=== PATIENT | female | born 1965 | race Caucasian/White ===

== ENCOUNTER 2019-07-22 10:43 | Emergency (ER) | payer BC, SELFPAY ==
[2019-07-22 10:55] VITALS: BP 110/62; PULSE 87; RESP 20; TEMP 38.2; O2SAT 100
--- NOTE | 2019-07-22 11:42 | ED.URI ---
HPI - URI/Sore Throat General Chief Complaint: Upper Respiratory Infection Stated Complaint: nausea/cough/aches Time Seen by Provider: 07/22/19 11:42 Source: patient, family and RN notes reviewed Mode of arrival: ambulatory Limitations: no limitations History of Present Illness HPI Narrative: 54-year-old female who presents to [facility] care with 1 day duration of sore throat fever, body aches, ear pain,with cough and some nausea. Patient states that she had been running fevers around 101F and feels awful.Patient states that her cough is dry, denies any feelings of dyspnea or any wheezing. Patient states that she did not take a flu shot this year. Patient states that she has been taking Ibuprofen and Tesslon perles for her symptoms. Patient has history of MVP and has cardiac loop recorder. MD elicited complaint: fever, sore throat, rhinorrhea, nasal congestion and other (bodyaches, ear pain) Onset (ago): day(s) (1) Consistency: progressively worsening Severity: severe Pain scale (0-10): 8 Description of mucous: clear and yellow Able to tolerate fluids by mouth: Yes Exacerbating factors: swallowing, exertion and deep breaths Relieving factors: nothing Associated symptoms: fever, chills, myalgias, rhinorrhea, nasal congestion and cough Treatments prior to arrival: ibuprofen and other (cough tabs) Related Data Home Medications Medication Instructions Recorded Confirmed fludrocortisone 0.1 mg DAILY 07/22/19 07/22/19 midodrine 5 mg BID 07/22/19 07/22/19 venlafaxine 150 mg PO DAILY 07/22/19 07/22/19 Allergies Allergy/AdvReac Type Severity Reaction Status Date / Time No Known Allergies Allergy Verified 07/22/19 10:59 Review of Systems Review of Systems: Narrative: CONSTITUTIONAL: positive fever, chills, or sweats. EYES: Denies visual changes, redness, or discharge. ENT: positive rhinorrhea, congestion, sore throat, or otalgia. CARDIOVASCULAR: Denies chest pain, palpitations, or edema. RESPIRATORY positive cough denies dyspnea. GASTROINTESTINAL: Denies abdominal pain,positive nausea, no vomiting, or diarrhea. GENITOURINARY: Denies dysuria or hematuria. SKIN: Denies rash or itching. MUSCULOSKELETAL: Denies back pain, joint pain,positive body aches NEUROLOGIC: Denies headache, numbness, or weakness. PSYCHIATRIC: Denies anxiety or depression. All systems reviewed & are unremarkable except as noted in HPI and below PMFSH Past Medical History Medical History (Updated 07/25/19 @ 15:47 by Laura Hinds NP) Hypotension MVP (mitral valve prolapse) Social History Social History (Updated 07/25/19 @ 15:48 by Laura Hinds NP) Smoking status: Never smoker Living arrangements: with family Gender identity (if verbalized by the patient): Female Comments At time of signature, agree with nursing past medical, social history. There is no relevant family history pertinent to the presenting complaint Exam Narrative: Exam Narrative: GENERAL: Ill-appearing, well-nourished, and in no acute distress. HEAD: Normocephalic, atraumatic. EYES: PERRLA and EOMI. ENT: Naresred withrhinorrhea no epistaxis. Mucous membranes moist.TM's normal with dull light reflex,throat mild redness with no lesions or exudate no enlargement of tonsils NECK: Supple.no lymphadenopathy CHEST: Clear to auscultation. No respiratory distress. SAO2 100% on room air HEART: Regular rate and rhythm. pansystolic 2/6 murmur heard. Normal peripheral pulses. ABDOMEN: Soft, nontender, nondistended, normal active bowel sounds. EXTREMITIES: Normal range of motion. No edema. SKIN: Warm, dry, no rash. NEURO: No focal deficits. Alert and oriented x3. Course Vital Signs Vital signs: Vital Signs Temperature 38.2 C H 07/22/19 10:55 Pulse Rate 87 07/22/19 10:55 Respiratory Rate 20 07/22/19 10:55 Blood Pressure 110/62 07/22/19 10:55 Pulse Oximetry 100 07/22/19 10:55 Temperature 38.2 C H 07/22/19 10:55 Pulse Rate 87 07/22/19 10:55 Respirator
== END 2019-07-22 12:13 | disposition home or self-care (01) ==
PROVIDERS: Emergency Provider Registered Nurse
DX: J10.1 Influenza due to other identified influenza virus with other respiratory manifestations (principal); I34.1 Nonrheumatic mitral (valve) prolapse
CPT/HCPCS: 87081; 87804; 87880; 99213; G0463

== ENCOUNTER 2019-10-27 10:16 | Emergency (ER) | payer BC, SELFPAY ==
--- NOTE | 2019-10-27 10:21 | ED.GENADULT ---
HPI - General Adult General Chief complaint: Ear Stated complaint: ear pain Time Seen by Provider: 10/27/19 10:21 Source: patient Mode of arrival: ambulatory Limitations: no limitations History of Present Illness HPI narrative: 54-year-old female patient presents to the psychiatric with complaints of right ear pain x1 week. Patient states she has been taking ibuprofen and Tylenol for her pain. Denies any discharge coming from the ear. Patient states that she is had some discomfort. Patient denies any decrease in hearing. Patient denies any fevers headaches, fatigue or chills. Patient states she feels that the pain is radiating down into the right side of her throat. Patient states she has had a little bit of runny nose and stuffy nose with some sneezing lately and thinks it might be sinuses but denies taking any antihistamines at this time. Related Data Home Medications Medication Instructions Recorded Confirmed midodrine 5 mg BID 07/22/19 07/22/19 venlafaxine 150 mg PO DAILY 07/22/19 07/22/19 Aspir-81 10/27/19 fludrocortisone mg 10/27/19 Allergies Allergy/AdvReac Type Severity Reaction Status Date / Time No Known Allergies Allergy Verified 07/22/19 10:59 Review of Systems Review of Systems: Narrative: CONSTITUTIONAL: Denies fever, chills, or sweats. EYES: Denies visual changes, redness, or discharge. ENT: Denies rhinorrhea, congestion, sore throat, positive right otalgia. CARDIOVASCULAR: Denies chest pain, palpitations, or edema. RESPIRATORY: Denies cough or dyspnea. GASTROINTESTINAL: Denies abdominal pain, nausea, vomiting, or diarrhea. GENITOURINARY: Denies dysuria or hematuria. SKIN: Denies rash or itching. MUSCULOSKELETAL: Denies back pain, joint pain, or myalgia. NEUROLOGIC: Denies headache, numbness, or weakness. PSYCHIATRIC: Denies anxiety or depression. [facility] Past Medical History Medical History Hypotension MVP (mitral valve prolapse) Social History Social History Smoking status: Never smoker Gender identity (if verbalized by the patient): Female Comments At the time of my signature I agree with nursing past medical history, surgical, social, and family history. There is no relevant family history pertinent to the presenting complaint. Exam Narrative: Exam Narrative: GENERAL: Well-appearing, well-nourished, and in no acute distress. HEAD: Normocephalic, atraumatic. EYES: PERRLA and EOMI. ENT: Nares clear, no rhinorrhea or epistaxis. Mucous membranes moist. Posterior pharynx no erythema, tonsil larger, exudates or lesions present. The right TM does have some fluid behind the ear no obvious redness noted at this time. Canal is clear. NECK: Supple. No lymphadenopathy CHEST: Clear to auscultation. No respiratory distress. HEART: Regular rate and rhythm. No murmur heard. Normal peripheral pulses. ABDOMEN: Soft, nontender, nondistended, normal active bowel sounds. EXTREMITIES: Normal range of motion. No edema. SKIN: Warm, dry, no rash. NEURO: No focal deficits. Alert and oriented x3. Course Vital Signs Vital signs: Vital Signs Temperature 36.3 C L 10/27/19 10:28 Pulse Rate 64 10/27/19 10:28 Respiratory Rate 16 10/27/19 10:28 Blood Pressure 119/71 10/27/19 10:28 Pulse Oximetry 100 10/27/19 10:28 Temperature 36.3 C L 10/27/19 10:28 Pulse Rate 64 10/27/19 10:28 Respiratory Rate 16 10/27/19 10:28 Blood Pressure 119/71 10/27/19 10:28 Pulse Oximetry 100 10/27/19 10:28 Vital signs reviewed. Medical Decision Making Differential Diagnosis Differential Diagnosis: Differential diagnosis: Otitis media, otitis externa, perforated TM, infection of the outer ear, foreign body or cerumen impaction, ruptured TM, acute mastoiditis, ligament otitis externa, dehydration, pneumonia, sepsis, dental or intraoral infection, TMJ dysfunction Discussed with patie
[2019-10-27 10:28] VITALS: BP 119/71; PULSE 64; RESP 16; TEMP 36.3; O2SAT 100
== END 2019-10-27 10:40 | disposition home or self-care (01) ==
PROVIDERS: Emergency Provider Nurse Practitioner Family; PCP Family Medicine
DX: H66.91 Otitis media, unspecified, right ear (principal); I34.1 Nonrheumatic mitral (valve) prolapse
CPT/HCPCS: 99213; G0463

== ENCOUNTER 2019-12-15 15:36 | Outpatient (CLI) | payer BC, SELFPAY ==
--- NOTE | ~2019-12-15 | CT_ITS ---
EXAMINATION: CT abdomen pelvis wo/w con DATE: 12/15/2019 16:36 INDICATION: Microscopic hematuria TECHNIQUE: Computed tomography (CT) of the abdomen and pelvis was performed without and with 130 cc O mnipaque 350 intravenous contrast. The dose-length product was 774.79 mGy-cm. Automated exposure cont rol and iterative reconstruction technique were employed. COMPARISON: None. FINDINGS: There are no renal/ureteral stones or hydronephrosis. Bladder is unremarkable. There are tu bal ligation clips in the pelvis. Uterus is likely surgically absent. Nonobstructive bowel gas pattern. The liver, spleen, adrenal glands and kidneys are unremarkable. The re is a small 6 mm hypodensity of the pancreas. Gallbladder is present. No free air or free fluid. No acute osseous abnormality. There are surgical clips in the pelvis. Small lytic lesions in the left i lium are nonspecific, possibly normal variant. IMPRESSION: 1. No findings to account for hematuria. 2: 6 mm hypodense pancreatic lesion. The differential diagnosis includes pseudocyst, intraductal pap illary mucinous neoplasm (IPMN), mucinous cystic neoplasm (MCN), and the less common serous cystadeno ma and neuroendocrine tumor. Reviewed, dictated and finalized at location A. IMPRESSION: 1. No findings to account for hematuria. 2: 6 mm hypodense pancreatic lesion. The differential diagnosis includes pseud ocyst, intraductal papillary mucinous neoplasm (IPMN), mucinous cystic neoplasm (MCN), and the less common serous cystadenoma and neuroendocrine tumor.
== END 2019-12-15 15:37 | disposition home or self-care (01) ==
DX: R31.1 Benign essential microscopic hematuria (principal)
CPT/HCPCS: 74178; Q9967

== ENCOUNTER 2020-03-01 16:15 | Emergency (ER) | payer BC, SELFPAY ==
--- NOTE | ~2020-03-01 | XR_ITS ---
EXAMINATION: XR chest 2V DATE: 03/01/2020 16:46 INDICATION: Cough and shortness of breath TECHNIQUE: PA and lateral views of the chest are obtained. COMPARISON: None available FINDINGS: The lungs are free of acute opacities. There is no pleural effusion or pneumothorax. The ca rdiomediastinal silhouette is normal. There is mild thoracic spondylosis. A cardiac monitoring device is implanted in the subcutaneous tissues of the anterior left chest wall. IMPRESSION: 1. No acute cardiopulmonary abnormality. Reviewed, dictated and finalized at location A.
[2020-03-01 16:25] VITALS: BP 104/68; PULSE 81; RESP 20; TEMP 36.5; O2SAT 99
--- NOTE | 2020-03-01 16:44 | ED.URI ---
HPI - URI/Sore Throat General Chief Complaint: Upper Respiratory Infection Stated Complaint: upper respiratory infection Source: patient Mode of arrival: ambulatory Limitations: no limitations History of Present Illness HPI Narrative: Patient is a 54-year-old female who presents with multiple complaints. She reports cough, sore throat, chest tightness, mild shortness of breath, lethargy, body aches and headache. Patient reports signs and symptoms x7 to 10 days. She reports COVID testing x3 which have all been negative. Patient reports that she does not feel that she is improving and sent by PCP to urgent care. MD elicited complaint: cough and other Related Data Home Medications Medication Instructions Recorded Confirmed midodrine 5 mg BID 07/22/19 03/01/20 venlafaxine 150 mg PO DAILY 07/22/19 03/01/20 Aspir-81 81 mg PO DAILY 10/27/19 03/01/20 fludrocortisone 0.1 mg PO DAILY 10/27/19 03/01/20 multivitamin 1 tablet PO DAILY 01/30/20 01/31/20 sodium chloride 1 gram tablet 1,000 mg PO DAILY 01/30/20 03/01/20 Allergies Allergy/AdvReac Type Severity Reaction Status Date / Time No Known Allergies Allergy Verified 01/31/20 09:38 Review of Systems Review of Systems: Narrative: CONSTITUTIONAL: Denies fever or sweats. Reports intermittent chills x1 week EYES: Denies visual changes, redness, or discharge. ENT: Denies rhinorrhea, congestion, sore throat, or otalgia. CARDIOVASCULAR: Reports chest tightness, denies chest pain, palpitations, or edema. RESPIRATORY: Reports cough or dyspnea. GASTROINTESTINAL: Denies abdominal pain, nausea, vomiting, or diarrhea. GENITOURINARY: Denies dysuria or hematuria. SKIN: Denies rash or itching. MUSCULOSKELETAL: Denies back pain, joint pain, reports generalized myalgias NEUROLOGIC: Reports intermittent headache and generalized weakness, denies numbness or dizziness PSYCHIATRIC: Denies anxiety or depression. [facility] Past Medical History Medical History Depression Heart disease Hypotension MVP (mitral valve prolapse) Stroke Surgical History Surgical History H/O echocardiogram H/O hemorrhoidectomy H/O: hysterectomy History of colonoscopy Status post placement of implantable loop recorder Family History Family History Father Cancer Mother Cancer Grandparent Diabetes mellitus Hypertension Social History Social History Smoking status: Former smoker Alcohol intake: never Substance use: unknown Additional occupation/education comments: [employer] Gender identity (if verbalized by the patient): Female Exam Narrative: Exam Narrative: GENERAL: Well-appearing, well-nourished, and in no acute distress. HEAD: Normocephalic, atraumatic. EYES: EOMI. No redness or drainage. Conjunctiva are normal. ENT: Mucous membranes pink and moist. Nares clear. No rhinorrhea. TMs normal bilaterally. Throat normal. Uvula midline. NECK: AROM. Supple. No lymphadenopathy. CHEST: No respiratory distress. Clear to auscultation but slightly diminished. HEART: Regular rate and rhythm. No murmur appreciated. Normal peripheral pulses. GI: Soft, nontender without rebound, or guarding. No distention. Bowel sounds normal in all quadrants. MUSCULOSKELETAL: No bony tenderness. EXTREMITIES: Normal range of motion. No edema. SKIN: Warm, dry, no rash. NEURO: No focal deficits. Alert and oriented x3. Gait steady. PSYCH: Normal affect. No signs of depression or anxiety. Course Vital Signs Vital signs: Vital Signs Temperature 36.5 C 03/01/20 16:25 Pulse Rate 81 03/01/20 16:25 Respiratory Rate 20 03/01/20 16:25 Blood Pressure 104/68 03/01/20 16:25 Pulse Oximetry 99 03/01/20 16:25 Temperature 36.5 C 03/01/20 16:25 Pulse Rate 81 03/01/20 16:2
== END 2020-03-01 17:08 | disposition home or self-care (01) ==
PROVIDERS: Emergency Provider Nurse Practitioner; PCP Family Medicine
DX: B34.9 Viral infection, unspecified (principal); Z87.891 Personal history of nicotine dependence; F32.9 Major depressive disorder, single episode, unspecified; I34.1 Nonrheumatic mitral (valve) prolapse; Z86.73 Personal history of transient ischemic attack (TIA), and cerebral infarction without residual deficits
CPT/HCPCS: 71046; 99213; G0463

== ENCOUNTER 2020-03-29 13:01 | Emergency (ER) | payer BC, SELFPAY ==
[2020-03-29 13:10] VITALS: BP 101/67; PULSE 74; RESP 20; TEMP 36.4; O2SAT 99
--- NOTE | 2020-03-29 13:26 | ED.EYEPROB ---
HPI - Eye Problem General Chief complaint: Eye Problems Stated complaint: eye problems Time Seen by Provider: 03/29/20 13:20 Source: patient Mode of arrival: ambulatory Limitations: no limitations History of Present Illness HPI Narrative: Rach Vega is a 54 yo female with no PMH who comes to express care with mild L eye injection and tearing. doesn't wear eye make up, no contacts, painful (4/10),work made her leave because thought she had pink eye. She knows no one who has conjunctivitis Related Data Home Medications Medication Instructions Recorded Confirmed midodrine 5 mg BID 07/22/19 03/29/20 venlafaxine 150 mg PO DAILY 07/22/19 03/29/20 Aspir-81 81 mg PO DAILY 10/27/19 03/29/20 fludrocortisone 0.1 mg PO DAILY 10/27/19 03/29/20 multivitamin 1 tablet PO DAILY 01/30/20 03/29/20 sodium chloride 1 gram tablet 1,000 mg PO DAILY 01/30/20 03/01/20 mirabegron [Myrbetriq] 50 mg PO DAILY 03/29/20 03/29/20 Allergies Allergy/AdvReac Type Severity Reaction Status Date / Time No Known Allergies Allergy Verified 03/29/20 13:17 Review of Systems Review of Systems: Narrative: CONSTITUTIONAL: Denies fever, chills, sweats. EYES: Denies visual changes, left eye redness, discharge. ENT: Denies rhinorrhea, congestion, sore throat, otalgia. CARDIOVASCULAR: Denies chest pain, palpitations, edema. RESPIRATORY: Denies dyspnea, wheezing, cough GASTROINTESTINAL: Denies abdominal pain, nausea, vomiting, diarrhea. GENITOURINARY: Denies dysuria, hematuria, abnormal discharge SKIN: Denies rash or itching. NEUROLOGIC: Denies numbness, or focal weakness. PSYCHIATRIC: Denies anxiety or depression. [facility] Past Medical History Medical History (Updated 03/29/20 @ 13:34 by Anh Mcqueen CNP) Depression Heart disease Hypotension MVP (mitral valve prolapse) Stroke Surgical History Surgical History H/O echocardiogram H/O hemorrhoidectomy H/O: hysterectomy History of colonoscopy Status post placement of implantable loop recorder Family History Family History Father Cancer Mother Cancer Grandparent Diabetes mellitus Hypertension Social History Social History Smoking status: Former smoker Alcohol intake: never Substance use: unknown Additional occupation/education comments: [employer] Gender identity (if verbalized by the patient): Female Comments At time of signature, I agree with nursing past medical, surgical, social and family history. There is no relevant family history pertinent to the presenting complaint. Exam Narrative: Exam Narrative: GENERAL: This is a well-nourished, well-developed patient, in mild distress. HEAD: normocephalic, atraumatic. EYES: PERRL. Sclera clear/white on R, mild injection on L with tearing. Tender upper eyelid. Vision is grossly intact. EARS: External ears normal, Hearing grossly intact. NOSE: External nose normal without nasal discharge, nares without redness, no rhinorrhea. THROAT: Mucous membranes moist, NECK: Neck supple, non-tender CARDIOVASCULAR: Regular rate and rhythm without murmurs, gallops, or rubs. RESPIRATORY: Clear to auscultation. Breath sounds equal bilaterally. No wheezes, rales, or rhonchi. GASTROINTESTINAL: Abdomen soft, SKIN: warm, intact with no suspicious lesions or rash, good texture and turgor. NEURO: awake, alert, and oriented to person, place and time. There were no obvious focal neurologic abnormalities. Steady gait EXTREMITIES: Normal range of motion. BACK: Nontender without deformity Course Course Emergency Course: Came with pain and tearing mild redness of left eye Discussed circumstances and started this morning, sent home from work, came here for evaluation of conjunctivitis. Started on polymyxin antibiotic for eye, warm washcloths to eye 3 times a day, wash hands well,
== END 2020-03-29 13:48 | disposition home or self-care (01) ==
PROVIDERS: Emergency Provider Nurse Practitioner; PCP Family Medicine
DX: H10.32 Unspecified acute conjunctivitis, left eye (principal); Z87.891 Personal history of nicotine dependence; I34.1 Nonrheumatic mitral (valve) prolapse; Z86.73 Personal history of transient ischemic attack (TIA), and cerebral infarction without residual deficits; F32.9 Major depressive disorder, single episode, unspecified
CPT/HCPCS: 99213; G0463

== ENCOUNTER 2020-04-08 11:33 | Outpatient (CLI) | payer BC, SELFPAY ==
[2020-04-08 13:16] LABS: Alanine Aminotransferase 33 U/L (4-35); Albumin Level 4.5 g/dL (3.5-5.1); Alkaline Phosphatase 96 U/L (38-126); Anion Gap 8 mmol/L (8-16); Aspartate Amino Transferase 40 U/L (14-36); Bilirubin,Total 0.7 mg/dL (0.2-1.3); Blood Urea Nitrogen 15 mg/dL (7-17); Calcium 9.7 mg/dL (8.4-10.2); Carbon Dioxide 30 mmol/L (22-30); Chloride 101 mmol/L (98-107); Estimated Glomerular Filt Rate > 60; Glucose 89 mg/dL (65-105); Potassium 4.2 mmol/L (3.4-5.0); Sodium 139 mmol/L (137-145)
== END 2020-04-08 11:34 | disposition home or self-care (01) ==
LOC: ANHLAB 11:35
PROVIDERS: Visit Provider Surgery
DX: K80.50 Calculus of bile duct without cholangitis or cholecystitis without obstruction (principal); K83.8 Other specified diseases of biliary tract
CPT/HCPCS: 36415; 80053

== ENCOUNTER → 2020-06-04 07:43 | Outpatient (CLI) | payer BC, SELFPAY ==
--- NOTE | ~2020-06-04 | US_ITS ---
EXAMINATION: US abdomen limited EXAM DATE: 06/04/2020 08:18 INDICATION: History of cyst on pancreas. Abdominal pain. TECHNIQUE: Multiple grayscale and Doppler images of the abdomen right upper quadrant were obtained (b y a technologist who performed the scan) and subsequently reviewed. Correlation is made to CT abdomen 12/15/2019. FINDINGS: 6 mm cystic region in the pancreas, highly likely benign finding. The pancreatic head and body are normal in appearance. The pancreatic tail is not visualized. The l iver has normal echogenicity and contour. There are no focal liver lesions identified. There is no evidence of intrahepatic biliary duct dilation. Portal venous flow was seen in the hepatopedal, nor mal direction and has normal Doppler waveform. No right-sided hydronephrosis. Common bile duct measures up to 7 mm, upper limits of normal for patient's age. The gallbladder wall is normal in thickness, with expected amount of distention. No sonographic evidence of pericholecyst ic fluid. There is small amount of gallbladder sludge. There is a tiny gallbladder polyp measuring 3 mm, not clinically significant finding. No cholelithiasis suspected. Technologist performing exam r lissas patient did not demonstrate sonographic Mayen's sign. Please note that this sign is less rel iable in patients who have received pain medication. IMPRESSION: 1. Small pancreatic cyst and gallbladder polyp, not clinically significant findings. 2. Gallbladder sludge without discrete cholelithiasis. Reviewed, dictated and finalized at location D. ECTIONS NURSE IMPRESSION: 1. Small pancreatic cyst and gallbladder polyp, not clinically significant fin [place]. 2. Gallbladder sludge without discrete cholelithiasis.
== END ==
PROVIDERS: Visit Provider Surgery
DX: R10.9 Unspecified abdominal pain (principal); K86.2 Cyst of pancreas
CPT/HCPCS: 76705

== ENCOUNTER 2020-06-24 09:56 | Outpatient (CLI) | payer BC, SELFPAY ==
--- NOTE | ~2020-06-24 | NM_ITS ---
EXAMINATION: NM hepatobiliary w pharm DATE: 06/24/2020 12:24 INDICATION: Upper abdominal pain COMPARISON: None. TECHNIQUE: 4.8 mCi Tc-99m mebrofenin (Choletec) was administered intravenously. Scintigraphic images of the abdomen were obtained for one hour. 1.3 mcg sincalide (Kinevac) was administered by slow intr avenous infusion, and imaging was continued for 30 minutes. Gallbladder ejection fraction was calcula laura by the technologist. FINDINGS: There is normal clearance of radiotracer from the blood pool. There is homogeneous tracer uptake by t he liver. Activity progresses to the gallbladder and bowel. The gallbladder ejection fraction (GBEF) is 66% (normal 10-90%, but most patient with gallbladder dysfunction have GBEF < 35% which does over lap with the normal range). IMPRESSION: 1. Normal hepatobiliary scan. Reviewed, dictated and finalized at location A. ER PLANTER
== END 2020-06-24 09:57 | disposition home or self-care (01) ==
PROVIDERS: Visit Provider Surgery
DX: R10.10 Upper abdominal pain, unspecified (principal)
CPT/HCPCS: 78227; A9537; J2805

== ENCOUNTER 2020-10-28 14:47 | Outpatient (CLI) | payer BC, SELFPAY ==
--- NOTE | ~2020-10-28 | MM_ITS ---
EXAMINATION: MM screening shreya BI w saeed HISTORY: Screening mammogram TECHNIQUE: Craniocaudal and mediolateral oblique 3-D tomosynthesis images were obtained and synthetic 2-D images were generated. CAD analysis was submitted and interpreted. COMPARISON: No prior mammogram is available for comparison at this institution. BREAST PARENCHYMAL COMPOSITION: The breasts are heterogeneously dense, which may obscure small masses . FINDINGS: There is no evidence of suspicious mass, calcification, or architectural distortion to sugg est malignancy in either breast. There has been no suspicious interval change. IMPRESSION: 1. No mammographic evidence of malignancy. 2. Recommend routine screening mammography in one year. BI-RADS Category 1: Negative Reviewed, dictated and finalized at location A.
== END 2020-10-28 14:48 | disposition home or self-care (01) ==
LOC: ANHIMG 14:51
DX: Z12.31 Encounter for screening mammogram for malignant neoplasm of breast (principal)
CPT/HCPCS: 77063; 77067

== ENCOUNTER → 2020-11-11 10:16 | Outpatient (CLI) | payer BC, SELFPAY ==
--- NOTE | ~2020-11-11 | US_ITS ---
US abdomen limited INDICATION: Upper abdominal pain PROCEDURE: Realtime right upper abdominal ultrasound. COMPARISON: No prior studies for comparison. FINDINGS: Stable 6 mm pancreatic cyst. Liver echotexture is normal without focal mass or intrahepati c biliary dilatation. There is normal directional flow in the portal vein. There is a possible gallbladder polyp Common bile duct measures 6 mm. No sonographic Mayen's sign. IMPRESSION: 1: Stable 6 mm pancreatic cyst, likely benign. 2: Possible gallbladder polyp, not well visualized. Reviewed, dictated and finalized at location B.
== END ==
PROVIDERS: PCP Surgery; Visit Provider Surgery
DX: R10.10 Upper abdominal pain, unspecified (principal); K86.2 Cyst of pancreas
CPT/HCPCS: 76705

== ENCOUNTER → 2021-11-17 13:56 | Outpatient (CLI) | payer BC, SELFPAY ==
--- NOTE | ~2021-11-17 | US_ITS ---
EXAMINATION: US abdomen limited DATE: 11/17/2021 14:19 INDICATION: Cholesterolosis of the gallbladder. TECHNIQUE: Multiple grayscale and Doppler ultrasound images of limited portions of the abdomen were o btained. COMPARISON: Ultrasound abdomen 06/04/2020. FINDINGS: 6 mm pancreatic cyst, likely a benign finding. Otherwise the visualized portions of the calvo creas are normal. The liver is normal with normal echogenicity and echotexture. No surface nodularity . Normal hepatopetal flow in the main portal vein. The gallbladder is normal with no abnormal wall th ickening, pericholecystic fluid or stones. The normal common bile duct measures 3.5 mm. There was no sonographic Mayen sign. The visualized portions of the inferior vena cava are normal. IMPRESSION: 1. No gallbladder polyp, stone, or sludge detected in today's examination. 2. Normal limited abdominal ultrasound findings. Reviewed, dictated and finalized at location K.
== END ==
PROVIDERS: Visit Provider Surgery
DX: K82.4 Cholesterolosis of gallbladder (principal)
CPT/HCPCS: 76705

== ENCOUNTER 2021-12-24 11:55 | Emergency (ER) | payer BC, SELFPAY ==
--- NOTE | ~2021-12-24 | XR_ITS ---
EXAMINATION: XR chest 2V DATE: 12/24/2021 12:27 INDICATION: 2 days of cough TECHNIQUE: PA and lateral views of the chest were obtained. COMPARISON: Chest radiograph dated 03/01/2020 FINDINGS: The lungs remain clear with no focal airspace opacities, pulmonary edema, pleural effusion or pneumot horax. The cardiomediastinal silhouette is normal. Mild thoracic spondylosis. IMPRESSION: 1. No acute cardiopulmonary disease. Reviewed, dictated and finalized at location A.
--- NOTE | 2021-12-24 11:56 | ED.URI ---
HPI - URI/Sore Throat General Chief Complaint: Upper Respiratory Infection Stated Complaint: Cough,Sore Throat,Rt Ear Irritation Time Seen by Provider: 12/24/21 11:56 Source: patient and RN notes reviewed History of Present Illness HPI Narrative: Patient is a 56-year-old female who presents the urgent care with complaints of cough, hoarseness, sore throat, sinus pressure. Patient states that she is also had a lot of pain in the right ear in which she has been taking Tylenol. States that she had COVID in June and denies of any recent exposures. Denies any fever, nausea, vomiting. Denies of shortness of breath or chest pain. No other acute complaints. No acute distress noted. Patient aware of the plan of care. Some parts of this dictation were generated by voice recognition software and may contain typographical and/or grammatical inaccuracies. Related Data Home Medications Medication Instructions Recorded Confirmed midodrine 5 mg tablet 5 mg BID 07/22/19 12/24/21 venlafaxine 150 mg 150 mg PO DAILY 07/22/19 12/24/21 capsule,extended release 24 hr Aspir-81 81 mg PO DAILY 10/27/19 12/24/21 fludrocortisone 0.1 mg tablet 0.1 mg PO DAILY 10/27/19 12/24/21 multivitamin (Daily Multi-Vitamin 1 tablet PO DAILY 01/30/20 12/24/21 tablet) omeprazole magnesium 20 mg 20 mg PO DAILY 06/17/20 12/24/21 tablet,delayed release (Prilosec OTC) metoprolol succinate 25 mg 12.5 mg PO DAILY 09/15/21 12/24/21 tablet,extended release 24 hr oxybutynin chloride 15 mg 15 mg PO DAILY 09/15/21 12/24/21 tablet,extended release 24 hr Allergies Allergy/AdvReac Type Severity Reaction Status Date / Time No Known Allergies Allergy Verified 12/24/21 12:02 Review of Systems Review of Systems: CONSTITUTIONAL: Denies fever, chills, or sweats. EYES: Denies visual changes, redness, or discharge. ENT: Reports of sinus congestion, sore throat, right otalgia and hoarseness CARDIOVASCULAR: Denies chest pain, palpitations, or edema. RESPIRATORY: Reports of cough GASTROINTESTINAL: Denies abdominal pain, nausea, vomiting, or diarrhea. GENITOURINARY: Denies dysuria or hematuria. SKIN: Denies rash or itching. MUSCULOSKELETAL: Denies back pain, joint pain, or myalgia. NEUROLOGIC: Denies headache, numbness, or weakness. All other systems reviewed are negative, except as documented in HPI. [facility] Past Medical History Medical History Arthritis Depression Heart disease History of kidney stones Hypertension Hypotension MVP (mitral valve prolapse) Stroke Surgical History Surgical History H/O echocardiogram H/O hemorrhoidectomy H/O: hysterectomy History of colonoscopy Status post placement of implantable loop recorder Family History Family History Father Cancer Mother Cancer Grandparent Diabetes mellitus Hypertension Other Carcinoma of colon Heart disease Social History Social History Smoking status: Former smoker Alcohol intake: never Substance use: unknown Additional occupation/education comments: [employer] Gender identity (if verbalized by the patient): Female Comments At the time of my signature, I reviewed and agree with the nursing past medical, surgical, social, and family history. There is no relevant family history pertinent to the patient complaint. Exam Narrative: GENERAL: This is a well-nourished, well-developed patient. Appears fatigued HEAD: normocephalic, atraumatic. EYES: PERRL. Sclera clear/white. Vision is grossly intact. EARS: External ears normal, auditory canals clear and without drainage, TMs normal without perforation. Hearing grossly intact. NOSE: External nose normal with no obvious nasal discharge, nares without redness, no rhinorrhea. THROAT:
[2021-12-24 12:05] VITALS: BP 106/64; PULSE 76; RESP 20; TEMP 36.2; O2SAT 99
== END 2021-12-24 12:58 | disposition home or self-care (01) ==
PROVIDERS: Emergency Provider Nurse Practitioner Family
DX: J40 Bronchitis, not specified as acute or chronic (principal); J32.9 Chronic sinusitis, unspecified; Z20.822 Contact with and (suspected) exposure to COVID-19; Z86.16 Personal history of COVID-19; Z87.891 Personal history of nicotine dependence; M19.90 Unspecified osteoarthritis, unspecified site; I10 Essential (primary) hypertension; I34.1 Nonrheumatic mitral (valve) prolapse; Z86.73 Personal history of transient ischemic attack (TIA), and cerebral infarction without residual deficits; F32.A Depression, unspecified
CPT/HCPCS: 71046; 87426; 99213; C9803; G0463

== ENCOUNTER 2022-03-23 13:30 | Outpatient (CLI) | payer BC, SELFPAY ==
--- NOTE | 2022-03-30 15:01 | WPDPFTINT ---
PFT Procedure Performed PFT Procedure Performed Spirometry with Pre/Post Bronchodilator Plethysmography (Lung Vol) Diffusing Cap (DLCO) PFT Interpretation DOS: 03/23/2022 REQUESTING: José Luis Barrera MD REASON FOR TESTING: Chronic cough PULMONARY FUNCTION TESTS Results are reliable and reproducible. The patient was unable to exhale completely to provide the expiratory limb Spirometry: Pre bronchodilator FEV1 is 2.55 L, 91%, normal. Pre bronchodilator FVC is 3.1 L, 87%, normal. FEV1/FVC 82% normal. After bronchodilator there is a 5% increase in the FEV1 and a 1% increase in the FVC, non statistically significant. Lung volumes: Total grace capacity 4.85 L, normal. This is 88% predicted. Residual volume 1.75 L, 83%, normal. RV/TLC 36, normal. Airway resistance normal 97% Diffusion: DLCO is 21, 91%, normal. DLCO/VA is 5.0, 115%, normal. Flow volume loop: This was not a normal flow volume loop due to the patient unable to exhale completely. IMPRESSION: Normal spirometry without airflow obstruction, normal lung volumes and normal diffusion. No change with bronchodilator. Windy Corral MD
== END 2022-03-23 13:31 | disposition home or self-care (01) ==
LOC: ANHPFT 13:34
DX: R05.3 Chronic cough (principal)
CPT/HCPCS: 94060; 94726; 94729

== ENCOUNTER 2022-06-07 16:51 | Emergency (ER) | payer BC, SELFPAY ==
--- NOTE | 2022-06-07 17:15 | ED.UPPEXIN ---
HPI - Extremity Injury (Upper) General Chief Complaint: Extremity Injury, Upper Stated Complaint: finger laceration Time Seen by Provider: 06/07/22 17:15 Source: patient Mode of arrival: ambulatory Limitations: no limitations History of Present Illness HPI narrative: 56-year-old female presents with laceration to distal aspect right index finger. 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 Bleeding controlled on arrival. States that she did not feel that she needed stitches but her made her come. States she normally uses butterfly strips when she has injuries to her fingers And then covers them with finger condoms while at work. Range of motion intact. All systems reviewed and negative except as noted above. Related Data Home Medications Medication Instructions Recorded Confirmed midodrine 5 mg tablet 5 mg BID 07/22/19 06/07/22 venlafaxine 150 mg 150 mg PO DAILY 07/22/19 06/07/22 capsule,extended release 24 hr fludrocortisone 0.1 mg tablet 0.1 mg PO DAILY 10/27/19 06/07/22 multivitamin (Daily Multi-Vitamin 1 tablet PO DAILY 01/30/20 06/07/22 tablet) omeprazole magnesium 20 mg 20 mg PO DAILY 06/17/20 06/07/22 tablet,delayed release (Prilosec OTC) metoprolol succinate 25 mg 12.5 mg PO DAILY 09/15/21 06/07/22 tablet,extended release 24 hr oxybutynin chloride 15 mg 15 mg PO DAILY 09/15/21 06/07/22 tablet,extended release 24 hr aspirin 81 mg chewable tablet 81 mg DAILY 06/07/22 06/07/22 Allergies Allergy/AdvReac Type Severity Reaction Status Date / Time No Known Allergies Allergy Verified 06/07/22 17:04 Review of Systems Review of Systems: CONSTITUTIONAL: Denies fever, chills, or sweats. EYES: Denies visual changes, redness, or discharge. ENT: Denies rhinorrhea, congestion, sore throat, or otalgia. CARDIOVASCULAR: Denies chest pain, palpitations, or edema. RESPIRATORY: Denies cough or dyspnea. GASTROINTESTINAL: Denies abdominal pain, nausea, vomiting, or diarrhea. GENITOURINARY: Denies dysuria or hematuria. SKIN: Reports laceration to right index finger. MUSCULOSKELETAL: Denies back pain, joint pain, or myalgia. NEUROLOGIC: Denies headache, numbness, or weakness. PSYCHIATRIC: Denies anxiety or depression. All other systems reviewed are negative, except as documented in HPI. [facility] Past Medical History Medical History Arthritis Depression Heart disease History of kidney stones Hypertension Hypotension MVP (mitral valve prolapse) Stroke Surgical History Surgical History H/O echocardiogram H/O hemorrhoidectomy H/O: hysterectomy History of colonoscopy Status post placement of implantable loop recorder Family History Family History Father Cancer Mother Cancer Grandparent Diabetes mellitus Hypertension Other Carcinoma of colon Heart disease Social History Social History Smoking status: Former smoker Alcohol intake: never Substance use: unknown Additional occupation/education comments: [email or web address] Gender identity (if verbalized by the patient): Female Comments At time of signature, agree with nursing past medical, surgical, social and family history. There is no relevant family history pertinent to the presenting complaint. Exam Narrative: GENERAL: This is a well-nourished, well-developed patient, in no apparent distress. HEAD: normocephalic, atraumatic. EYES: PERRL. Sclera clear/white. Vision is grossly intact. EARS: External ears normal NOSE: External nose normal NECK: Neck supple, non-tender without lymphadenopathy, masses or thyromegaly. CARDIOVASCULAR: Regular rate and rhythm without murmurs, gallops, or rubs. RESPIRATORY: Clear to auscultation. Breath
[2022-06-07 17:32] VITALS: BP 103/64; PULSE 98; RESP 18; TEMP 36.9; O2SAT 98
== END 2022-06-07 17:25 | disposition home or self-care (01) ==
PROVIDERS: Emergency Provider Nurse Practitioner Family
DX: S61.210A Laceration without foreign body of right index finger without damage to nail, initial encounter (principal); W26.8XXA Contact with other sharp object(s), not elsewhere classified, initial encounter; Z87.891 Personal history of nicotine dependence; M19.90 Unspecified osteoarthritis, unspecified site; I10 Essential (primary) hypertension; I34.1 Nonrheumatic mitral (valve) prolapse; Z86.73 Personal history of transient ischemic attack (TIA), and cerebral infarction without residual deficits; F32.A Depression, unspecified
CPT/HCPCS: 99212; G0463

== ENCOUNTER 2023-02-08 10:42 | Emergency (ER) | payer BC, SELFPAY ==
[2023-02-08 11:31] VITALS: BP 127/79; PULSE 72; RESP 20; TEMP 37; O2SAT 100
--- NOTE | 2023-02-08 11:58 | ED.URI ---
HPI - URI/Sore Throat General Chief Complaint: Ear Stated Complaint: congestion,bilateral ear pain Time Seen by Provider: 02/08/23 12:12 Source: patient and RN notes reviewed Mode of arrival: ambulatory Limitations: no limitations History of Present Illness HPI Narrative: 57-year-old female presents with concern congestion, sinus pain, sinus pressure, ear pain, ear pressure. She reports she takes Singulair, denies any other medications for her symptoms. She denies sick contacts. She reports she had chronic sinus problems. MD elicited complaint: nasal congestion and other (Ear pain) Related Data Home Medications Medication Instructions Recorded Confirmed midodrine 5 mg tablet 5 mg BID 07/22/19 02/08/23 venlafaxine 150 mg 150 mg PO DAILY 07/22/19 02/08/23 capsule,extended release 24 hr fludrocortisone 0.1 mg tablet 0.1 mg PO DAILY 10/27/19 02/08/23 multivitamin (Daily Multi-Vitamin 1 tablet PO DAILY 01/30/20 02/08/23 tablet) omeprazole magnesium 20 mg 20 mg PO DAILY 06/17/20 02/08/23 tablet,delayed release (Prilosec OTC) metoprolol succinate 25 mg 12.5 mg PO DAILY 09/15/21 02/08/23 tablet,extended release 24 hr oxybutynin chloride 15 mg 15 mg PO DAILY 09/15/21 02/08/23 tablet,extended release 24 hr aspirin 81 mg chewable tablet 81 mg DAILY 06/07/22 02/08/23 meloxicam 15 mg tablet 15 mg PO DAILY 02/08/23 02/08/23 Allergies Allergy/AdvReac Type Severity Reaction Status Date / Time No Known Allergies Allergy Verified 06/07/22 17:04 Review of Systems Review of Systems: CONSTITUTIONAL: Denies malaise, fever. EYES: Denies visual changes, redness, or discharge. ENT: Reports rhinorrhea, congestion, sinus pain, otalgia and sore throat. CARDIOVASCULAR: Denies chest pain, palpitations, or edema. RESPIRATORY: Reports cough. Denies dyspnea. GASTROINTESTINAL: Denies abdominal pain, nausea, vomiting, diarrhea SKIN: Denies rash or itching. MUSCULOSKELETAL: Denies myalgia. NEUROLOGIC: Denies headache. All systems reviewed & are unremarkable except as noted in HPI and below PMFSH Past Medical History Medical History Arthritis Depression Heart disease History of kidney stones Hypertension Hypotension MVP (mitral valve prolapse) Stroke Surgical History Surgical History H/O echocardiogram H/O hemorrhoidectomy H/O: hysterectomy History of colonoscopy Status post placement of implantable loop recorder Family History Family History Father Cancer Mother Cancer Grandparent Diabetes mellitus Hypertension Other Carcinoma of colon Heart disease Social History Social History Smoking status: Former smoker Alcohol intake: never Substance use: unknown Living arrangements: with family Occupation/Education: occupation Additional occupation/education comments: [employer] Gender identity (if verbalized by the patient): Female Comments At time of signature, agree with nursing past medical, surgical, social and family history. There is no relevant family history pertinent to the presenting complaint Exam Narrative: GENERAL: Well-appearing, well-nourished, and in no acute distress. HEAD: Normocephalic EYES: PERRLA, conjunctivae clear ENT: Nares clear, turbinates edematous and erythematous, clear discharge. Mucous membranes moist. TM pearly luna with sharp light reflex bilaterally; no tragal tenderness. Oropharynx not erythematous without lesions. Tonsils not enlarged and without exudate, no drooling, no hoarseness, no trismus, uvula midline. NECK: Supple. No lymphadenopathy CHEST: Clear to auscultation, breath sounds equal. No wheezing, rhonchi, rales, or stridor. No respiratory distress, speaks in full sentences. HEART: Regular rate and rhythm
== END 2023-02-08 12:28 | disposition home or self-care (01) ==
PROVIDERS: Emergency Provider Nurse Practitioner
DX: J32.9 Chronic sinusitis, unspecified (principal); Z87.891 Personal history of nicotine dependence; I10 Essential (primary) hypertension; I34.1 Nonrheumatic mitral (valve) prolapse; Z86.73 Personal history of transient ischemic attack (TIA), and cerebral infarction without residual deficits; M19.90 Unspecified osteoarthritis, unspecified site; F32.A Depression, unspecified
CPT/HCPCS: 99213; G0463

== ENCOUNTER 2023-05-20 12:24 | Emergency (ER) | payer BC, SELFPAY ==
[2023-05-20 12:37] VITALS: BP 113/73; PULSE 66; RESP 18; TEMP 35.9; O2SAT 100
[2023-05-20 12:40] VITALS: BP 113/73; PULSE 66; RESP 18; TEMP 35.9; O2SAT 100
--- NOTE | 2023-05-20 12:40 | ED.URI ---
HPI - URI/Sore Throat General Chief Complaint: Upper Respiratory Infection Stated Complaint: congestion,rash Time Seen by Provider: 05/20/23 12:41 Source: patient, RN notes reviewed and old records reviewed Mode of arrival: ambulatory Limitations: no limitations History of Present Illness HPI Narrative: 57-year-old female presents to [facility] with complaints cough, congestion, sinus pain and pressure, and bilateral ear pressurethe patient states has been going on for 2 years since she had COVID. Patient states symptoms come and go. Patient states has primary care physician. patient also complaining of rash to arms for 1 month. Patient states rash is itchy patient states he has been doing Epsom salt bath without relief. MD elicited complaint: cough Related Data Home Medications Medication Instructions Recorded Confirmed midodrine 5 mg tablet 5 mg BID 07/22/19 05/20/23 venlafaxine 150 mg 150 mg PO DAILY 07/22/19 05/20/23 capsule,extended release 24 hr fludrocortisone 0.1 mg tablet 0.1 mg PO DAILY 10/27/19 05/20/23 metoprolol succinate 25 mg 12.5 mg PO DAILY 09/15/21 05/20/23 tablet,extended release 24 hr oxybutynin chloride 15 mg 15 mg PO DAILY 09/15/21 05/20/23 tablet,extended release 24 hr aspirin 81 mg chewable tablet 81 mg DAILY 06/07/22 05/20/23 meloxicam 15 mg tablet 15 mg PO DAILY 02/08/23 05/20/23 cetirizine 10 mg tablet 10 mg DIRECTED 05/20/23 05/20/23 Allergies Allergy/AdvReac Type Severity Reaction Status Date / Time No Known Allergies Allergy Verified 06/07/22 17:04 Review of Systems Constitutional: Constitutional: Reports no additional constitutional complaints Eyes: Eyes: Reports no additional eye complaints ENT: Reports as per HPI, Reports otalgia and Reports nasal congestion Cardiovascular: Cardiovascular: Reports no additional cardiovascular complaints Respiratory: Respiratory: Reports as per HPI, Reports chest congestion and Reports cough Integumentary/Breasts: Skin/Breast: Reports as per HPI and Reports rash Neurologic: Reports system reviewed and no additional complaints, except as documented PMFSH Past Medical History Medical History Arthritis Depression Heart disease History of kidney stones Hypertension Hypotension MVP (mitral valve prolapse) Stroke Surgical History Surgical History H/O echocardiogram H/O hemorrhoidectomy H/O: hysterectomy History of colonoscopy Status post placement of implantable loop recorder Family History Family History Father Cancer Mother Cancer Grandparent Diabetes mellitus Hypertension Other Carcinoma of colon Heart disease Social History Social History Smoking status: Former smoker Alcohol intake: never Substance use: unknown Living arrangements: with family Occupation/Education: occupation Additional occupation/education comments: [email or web address] Gender identity (if verbalized by the patient): Female Comments At the time of my signature, I reviewed and agree with the nursing past medical, surgical, social, and family history. There is no relevant family history pertinent to the patient complaint. Exam Const: General: cooperative, healthy appearing, no acute distress and well nourished Nutritional Appearance: well nourished Orientation/consciousness: patient oriented x3 Limitations: no limitations HENMT: Head: normal to inspection and normocephalic Ears: external ears normal, TM's normal bilaterally, mastoids normal and Abnormal EAC present Face/Nose/Sinus: normal facial exam Face and sinus: normal facial exam Mouth: Yes Normal oral and palatal mucosa present, Yes oropharynx normal and Yes moist mucous membranes Throat: posterior oropharynx normal, tonsils normal, uvul
== END 2023-05-20 13:00 | disposition home or self-care (01) ==
PROVIDERS: Emergency Provider Registered Nurse
DX: J31.0 Chronic rhinitis (principal); L30.9 Dermatitis, unspecified; H74.8X3 Other specified disorders of middle ear and mastoid, bilateral; I10 Essential (primary) hypertension; Z79.82 Long term (current) use of aspirin; Z79.899 Other long term (current) drug therapy; Z79.1 Long term (current) use of non-steroidal anti-inflammatories (NSAID); Z87.891 Personal history of nicotine dependence
CPT/HCPCS: 70260; 99213; G0463

== ENCOUNTER → 2023-05-20 13:02 | Outpatient (CLI) | payer BC, SELFPAY ==
--- NOTE | ~2023-05-20 | XR_ITS ---
EXAMINATION: XR skull min 4V DATE: 05/20/2023 13:30 INDICATION: Forehead bump. TECHNIQUE: 4 views of the skull were obtained. COMPARISON: Head CT 04/12/2019 FINDINGS: Bone alignment is normal. No fracture. There is no abnormal mass. IMPRESSION: 1. Normal skull. Reviewed, dictated and finalized at location A. AR MAN IMPRESSION: 1. Normal skull.
== END ==
DX: R22.0 Localized swelling, mass and lump, head (principal)
CPT/HCPCS: 70260

== ENCOUNTER 2023-11-02 13:45 | Emergency (ER) | payer BC, SELFPAY ==
[2023-11-02] VITALS (10 sets, daily range): BP systolic 133–138; BP diastolic 72–84; PULSE 57–67; RESP 10–20; TEMP 36.4; O2SAT 99–100
--- NOTE | ~2023-11-02 | CT_ITS ---
EXAMINATION: CTA chest PE protocol DATE: 11/02/2023 14:58 INDICATION: PE TECHNIQUE: Computed tomography angiography (CTA) of the chest was performed with 100 mL Omnipaque-350 intravenous contrast timed to evaluate the pulmonary arteries. Coronal maximum intensity projection 3D-reconstructions were created by the technologist. The dose-length product (DLP) was 282.21 mGy-cm. Automated exposure control and iterative reconstruction technique were employed. COMPARISON: X-ray chest same date. FINDINGS: Lung parenchyma and airways: Clear. Pleura: Unremarkable. Thoracic inlet, axillae and chest wall: Unremarkable. Thoracic aorta: The ascending thoracic aorta is dilated to 4.1 cm. No dissection. Mediastinum: Normal. Heart and pericardium: Mild cardiomegaly. Coronary artery calcifications: Absent. Upper abdomen: No significant finding. Bones: No acute osseous finding. Pulmonary arteries: Study quality: Adequate. No pulmonary emboli detected. IMPRESSION: No CT evidence of acute pulmonary embolus. No acute process detected in the chest. Ascending thoracic aortic ectasia. Mild cardiomegaly. Reviewed, dictated and finalized at location K.
--- NOTE | ~2023-11-02 | XR_ITS ---
EXAMINATION: XR chest 2V 11/02/2023 14:27 INDICATION: Shortness of breath with exertion PROCEDURE: 2 view chest COMPARISON: 12/24/2021 FINDINGS: The lungs are clear. The cardiomediastinal silhouette is within normal limits. There are no pleural effusions. There is no pneumothorax suspected. IMPRESSION: 1: NO ACUTE CARDIOPULMONARY DISEASE. Reviewed, dictated and finalized at location B.
--- NOTE | 2023-11-02 14:01 | ECG_ITS ---
SEE SCANNED COPY FOR CONFIRMED REPORT MTDD
[2023-11-02 14:08] LABS: Basophils Absolute Auto 0.1 K/mm3 (0.0-0.1); Basophils Percent Auto 0.7 % (0.2-1.2); Eosinophils Absolute Auto 0.2 K/mm3 (0-0.3); Eosinophils Percent Auto 2.4 % (0-4.4); Hematocrit 35.5 % (37.0-47.0); Hemoglobin 11.7 g/dL (12.0-15.0); Immature Granulocyte Absolute 0.01 K/mm3 (0.00-0.031); Immature Granulocyte Percent A 0.1 % (0-0.5); Lymphocytes Absolute Auto 3.21 K/mm3 (0.9-3.2); Mean Corpuscular Hemoglobin 32.2 pg (26-34); Mean Corpuscular Volume 97.8 fl (80-100); Mean Platelet Volume 10.4 fl (7.4-10.4); Monocytes Absolute Auto 0.6 K/mm3 (0.1-0.6); Monocytes Percent Auto 7.2 % (2.6-8.5); Neutrophils Absolute Auto 4.2 K/mm3 (1.3-6.7); Neutrophils Percent Auto 50.6 % (45.5-73.1); Platelet Count Result 302 k/mm3 (150-375); Red Blood Count 3.63 M/mm3 (4.2-5.4); Red Cell Distribution Width 13.6 % (11.5-14.5); White Blood Count 8.2 K/mm3 (4.5-10.0)
--- NOTE | 2023-11-02 14:13 | ED.RECABL ---
HPI - Recheck/Abnormal Lab/Rx General Chief Complaint: Recheck/Abnormal Lab/Rx Stated Complaint: elevated d dimer from pcp Time Seen by Provider: 11/02/23 14:02 History of Present Illness HPI narrative: Patient is a 58-year-old female with history of arthritis, hypertension, mitral valve prolapse, CVA here with chest discomfort and coughing up abnormal sputum. Patient states that over the last 1.5 years she has coughed up what appeared to be ?scabs ?. She has seen multiple psychologist research assistant for this. One has advised her to get evaluated by a GI doctor as he is concerned maybe she has achalasia which could be contributing to these symptoms. She actually notes that she has not coughed up any of these scabs for the last month. Over the last 1 month she has been having some midsternal chest pain. Wednesday she went to her primary care doctor and told her about these symptoms and they performed outpatient lab work including a D-dimer. The D-dimer was a reportedly elevated, the patient does not what the number was. The patient was sent into the emergency department for evaluation for possible PE. Patient notes that she has had some Kittner minute lower extremity pains as well as lower back pain and constipation. These have been longstanding. She has had a prior colonoscopy in the past which was normal. All of these additional issues are being evaluated and addressed by her primary care doctor and are not the reason for her visit today. Related Data Home Medications Medication Instructions Recorded Confirmed midodrine 5 mg tablet 5 mg BID 07/22/19 05/20/23 venlafaxine 150 mg 150 mg PO DAILY 07/22/19 05/20/23 capsule,extended release 24 hr fludrocortisone 0.1 mg tablet 0.1 mg PO DAILY 10/27/19 05/20/23 metoprolol succinate 25 mg 12.5 mg PO DAILY 09/15/21 05/20/23 tablet,extended release 24 hr oxybutynin chloride 15 mg 15 mg PO DAILY 09/15/21 05/20/23 tablet,extended release 24 hr aspirin 81 mg chewable tablet 81 mg DAILY 06/07/22 05/20/23 meloxicam 15 mg tablet 15 mg PO DAILY 02/08/23 05/20/23 cetirizine 10 mg tablet 10 mg DIRECTED 05/20/23 05/20/23 Allergies Allergy/AdvReac Type Severity Reaction Status Date / Time No Known Allergies Allergy Verified 06/07/22 17:04 Review of Systems Review of Systems: All systems reviewed & are unremarkable except as noted in HPI and below PMFSH Past Medical History Medical History Arthritis Depression Heart disease History of kidney stones Hypertension Hypotension MVP (mitral valve prolapse) Stroke Surgical History Surgical History H/O echocardiogram H/O hemorrhoidectomy H/O: hysterectomy History of colonoscopy Status post placement of implantable loop recorder Family History Family History Father Cancer Mother Cancer Grandparent Diabetes mellitus Hypertension Other Carcinoma of colon Heart disease Social History Social History Smoking status: Former smoker Alcohol intake: never Substance use: unknown Living arrangements: with family Occupation/Education: occupation Additional occupation/education comments: [employer] Gender identity (if verbalized by the patient): Female Exam Narrative: GENERAL: Well-appearing, well-nourished, and in no acute distress. HEAD: Normocephalic, atraumatic. EYES: PERRLA and EOMI. ENT: Nares clear. Mucous membranes moist. NECK: Supple. CHEST: Clear to auscultation. No respiratory distress. HEART: Regular rate and rhythm. Normal peripheral pulses. ABDOMEN: Soft, nontender, nondistended. EXTREMITIES: Normal range of motion. No edema. SKIN: Warm, dry, no rash. NEURO: No focal deficits. Alert and oriented x3. PSYCH: Normal mood and affect. Course Cou
[2023-11-02 14:18] LABS: Alanine Aminotransferase 42 U/L (6-35); Albumin Level 4.6 g/dL (3.5-5.1); Alkaline Phosphatase 104 U/L (38-126); Anion Gap 5 mmol/L (4-12); Aspartate Amino Transferase 38 U/L (14-36); Bilirubin,Total 0.4 mg/dL (0.2-1.3); Blood Urea Nitrogen 21 mg/dL (7-17); Calcium 9.4 mg/dL (8.4-10.2); Carbon Dioxide 30 mmol/L (22-30); Chloride 106 mmol/L (98-107); Estimated CRCL calculation 63 ml/min; Estimated Glomerular Filt Rate > 60; Glucose 93 mg/dL (65-110); Potassium 4.1 mmol/L (3.4-5.0); Sodium 141 mmol/L (137-145)
[2023-11-02 14:19] LABS: INR 0.9
[2023-11-02 14:27] LABS: D Dimer 0.53 ug/mL (<0.48)
[2023-11-02 15:38] LABS: NT Pro B Type Natriuretic Pept 1850 pg/mL (19.9-100); Troponin I < 0.012 ng/mL (0.000-0.034)
[2023-11-02 16:03] LABS: CRP < 0.5 mg/dL (<1.0)
== END 2023-11-02 16:40 | disposition home or self-care (01) ==
PROVIDERS: Emergency Medicine; Emergency Provider Student in an Organized Health Care Education/Training Program; PCP Family Medicine
DX: R05.9 Cough, unspecified (principal); I34.1 Nonrheumatic mitral (valve) prolapse; I11.9 Hypertensive heart disease without heart failure; M19.90 Unspecified osteoarthritis, unspecified site; F32.A Depression, unspecified; Z86.73 Personal history of transient ischemic attack (TIA), and cerebral infarction without residual deficits; Z87.442 Personal history of urinary calculi; Z87.891 Personal history of nicotine dependence; Z90.710 Acquired absence of both cervix and uterus; R00.1 Bradycardia, unspecified; I51.7 Cardiomegaly; I44.0 Atrioventricular block, first degree; I77.810 Thoracic aortic ectasia
CPT/HCPCS: 36415; 71046; 71275; 80053; 83880; 84484; 85025; 85380; 85610; 86140; 93005; 99284; Q9967

== ENCOUNTER 2024-02-16 13:05 | Emergency (ER) | payer BC, SELFPAY ==
[2024-02-16 13:19] VITALS: BP 139/82; PULSE 75; RESP 16; TEMP 36.8; O2SAT 100
--- NOTE | 2024-02-16 13:19 | ED.URI ---
HPI - URI/Sore Throat General Chief Complaint: Upper Respiratory Infection Stated Complaint: bilateral ear pain / sore throat History of Present Illness HPI Narrative: patient is a 58-year-old female, past medical history significant for hypertension, GERD, hypertension CAD, presents to [facility] with bilateral otalgia and sore throat symptoms the past week. She states that for approximately 3 weeks she has had left lower dental pain where a previously filled tooth cracked. She has a dentist appointment tomorrow. She has not received antibiotic therapy for this tooth thus far. She denies sublingual swelling, she has no significant cough, she denies associated fevers but she has felt chilled and reports body aches for the past few days as well. She has no chest pain or shortness of breath. She is not sick contacts, she has not attempted any modifying factors prior to arrival. Related Data Home Medications Medication Instructions Recorded Confirmed midodrine 5 mg tablet 5 mg BID 07/22/19 02/16/24 venlafaxine 150 mg 150 mg PO DAILY 07/22/19 02/16/24 capsule,extended release 24 hr fludrocortisone 0.1 mg tablet 0.1 mg PO DAILY 10/27/19 02/16/24 metoprolol succinate 25 mg 12.5 mg PO DAILY 09/15/21 02/16/24 tablet,extended release 24 hr oxybutynin chloride 15 mg 15 mg PO DAILY 09/15/21 02/16/24 tablet,extended release 24 hr aspirin 81 mg chewable tablet 81 mg DAILY 06/07/22 02/16/24 meloxicam 15 mg tablet 15 mg PO DAILY 02/08/23 02/16/24 cetirizine 10 mg tablet 10 mg DIRECTED 05/20/23 02/16/24 pantoprazole 40 mg tablet,delayed 40 mg PO DAILY 02/16/24 02/16/24 release Allergies Allergy/AdvReac Type Severity Reaction Status Date / Time No Known Allergies Allergy Verified 02/16/24 13:10 Review of Systems ENT: Comments: Refer to [facility] Past Medical History Medical History Arthritis Depression Heart disease History of kidney stones Hypertension Hypotension MVP (mitral valve prolapse) Stroke Surgical History Surgical History H/O echocardiogram H/O hemorrhoidectomy H/O: hysterectomy History of colonoscopy Status post placement of implantable loop recorder Family History Family History Father Cancer Mother Cancer Grandparent Diabetes mellitus Hypertension Other Carcinoma of colon Heart disease Social History Social History Smoking status: Former smoker Alcohol intake: never Substance use: unknown Living arrangements: with family Occupation/Education: occupation Additional occupation/education comments: [employer] Gender identity (if verbalized by the patient): Female Exam Const: General: healthy appearing and no acute distress Nutritional Appearance: well nourished Orientation/consciousness: patient oriented x3 Limitations: no limitations HENMT: Head: normal to inspection Ears: external ears normal and TM abnormal ( bilateral serous pattern present. Left TM is retracted, no perforation) Face/Nose/Sinus: Normal external nose present and Normal nares present Face and sinus: normal facial exam and sinuses nontender Mouth: Yes Normal oral and palatal mucosa present, Yes lip normal and Yes moist mucous membranes Teeth and gingiva: abnormal tooth and associated gingiva ( Decay present, previous filling intact) lower left second molar Throat: posterior oropharynx normal and uvula midline Eyes: Conjunctivae: conjunctivae normal Pupils: Equal, round and reactive pupils present EOM: EOMs intact bilaterally Neck: Neck: normal visual inspection, no lymphadenopathy and no meningeal signs Resp: Effort & Inspection: normal respiratory effort Auscultation: clear to auscultation bilaterally Cardio: Rate: regular rate Rhyt
== END 2024-02-16 13:40 | disposition home or self-care (01) ==
PROVIDERS: Emergency Provider Nurse Practitioner Family
DX: K02.9 Dental caries, unspecified (principal); G50.1 Atypical facial pain; H65.03 Acute serous otitis media, bilateral; I10 Essential (primary) hypertension; K21.9 Gastro-esophageal reflux disease without esophagitis; I25.10 Atherosclerotic heart disease of native coronary artery without angina pectoris; Z79.82 Long term (current) use of aspirin; F32.A Depression, unspecified; Z87.891 Personal history of nicotine dependence
CPT/HCPCS: 99213; G0463

== ENCOUNTER 2024-07-31 11:39 | Emergency (ER) | payer BC, SELFPAY ==
[2024-07-31 11:46] VITALS: BP 123/71; PULSE 74; RESP 18; TEMP 36.2; O2SAT 100
--- NOTE | 2024-07-31 12:37 | ED_ITS ---
HPI - URI/Sore Throat General Chief Complaint: Upper Respiratory Infection Stated Complaint: COUGH Time Seen by Provider: 07/31/24 12:36 Source: patient, RN notes reviewed and old records reviewed Mode of arrival: ambulatory Limitations: no limitations History of Present Illness HPI Narrative: 59-year-old female presents to the [facility] with complaints of a cough that started on . Reports body aches. Has had fevers between 101-1O2. Has taken Tylenol Related Data Home Medications ?Medication ?Instructions ?Recorded ?Confirmed ?Last Taken ?Type midodrine 5 mg tablet 5 mg BID 07/22/19 02/16/24 Unknown History venlafaxine 150 mg 150 mg PO DAILY 07/22/19 02/16/24 Unknown History capsule,extended release 24 hr fludrocortisone 0.1 mg tablet 0.1 mg PO DAILY 10/27/19 02/16/24 Unknown History metoprolol succinate 25 mg 12.5 mg PO DAILY 09/15/21 02/16/24 Unknown History tablet,extended release 24 hr aspirin 81 mg chewable tablet 81 mg DAILY 06/07/22 02/16/24 Unknown History meloxicam 15 mg tablet 15 mg PO DAILY 02/08/23 02/16/24 Unknown History cetirizine 10 mg tablet 10 mg DIRECTED 05/20/23 02/16/24 Unknown History pantoprazole 40 mg tablet,delayed 40 mg PO DAILY 02/16/24 02/16/24 Unknown History release Allergies Allergy/AdvReac Type Severity Reaction Status Date / Time No Known Allergies Allergy Verified 07/31/24 12:37 Review of Systems Review of Systems: All systems reviewed & are unremarkable except as noted in HPI and below Constitutional: Constitutional: Reports as per HPI, Reports body ache(s), Reports chills, Reports fatigue and Reports fever(s) ENT: Reports system reviewed and no additional complaints, except as documented Cardiovascular: Cardiovascular: Reports no additional cardiovascular complaints, Denies chest pain and Denies dyspnea Respiratory: Respiratory: Reports as per HPI, Denies chest congestion, Reports cough and Denies dyspnea Musculoskeletal: Musculoskeletal: Reports no additional musculoskeletal co mplaints Integumentary/Breasts: Skin/Breast: Reports system reviewed and no additional complaints, except as [facility]u [facility] Past Medical History Medical History History of kidney stones Hypertension Arthritis Heart disease Stroke Depression MVP (mitral valve prolapse) Hypotension Surgical History Surgical History H/O echocardiogram Status post placement of implantable loop recorder History of colonoscopy H/O hemorrhoidectomy H/O: hysterectomy Family History Family History Father Cancer Mother Cancer Grandparent Diabetes mellitus Hypertension Other Carcinoma of colon Heart disease Social History Social History Smoking status: Former smoker Alcohol intake: never Substance use: unknown Living arrangements: with family Occupation/Education: occupation Additional occupation/education comments: [employer] Gender identity (if verbalized by the patient): Female Comments At the time of my signature, I reviewed and agree with the nursing past medical, surgical, social, and family history. There is no relevant family history pertinent to the patient complaint. Exam Const: General: cooperative, no acute distress, well developed, alert, tired appearing, uncomfortable and well nourished Nutritional Appearance: well nourished Orientation/consciousness: patient oriented x3 Limitations: no limitations HENMT: Head: normal to inspection Ears: hearing grossly normal bilaterally, external ears normal, TM's normal bilaterally, EAC's normal, mastoids normal and no periauricular adenopathy Mouth: Yes Normal oral and palatal mucosa present, Yes lip normal, Yes tongue normal and Yes moist mucous membranes Throat: posterior oropharynx normal, uvula midline and no uvular edema Eyes: General: appearance normal, both eyes and all related structures Alignment and Position: alignment normal Neck: Neck: normal visual inspection, full ROM, no lymphadenopathy and no meningeal signs Chest: Chest palpation & inspection: normal inspection of the chest Resp: Effort & Inspection: normal respiratory effort and able to speak in complete sentences Auscultation: clear to auscultation bilaterally, no crackles, no rales, no rhonchi and no wheezes Cardio: Rate: regular rate Skin: General skin exam: normal color and no rashes or lesions noted Neuro: General: patient oriented x3, gait normal, moves all extremities and no meningeal signs Cognition (Neuro): normal cognition Speech: normal speech Gait exam (Neuro): Normal gait present Extrem: General: normal to inspection, full ROM, capillary refill normal and normal gait Psych: Appearance: grossly normal and well kempt Mental Status: mental status grossly normal Speech and movement: Normal speech and movement present and Clear speech present Affect: normal affect Attitude: cooperative Course Course Level of Care: Express Care Visit Vital Signs Vital signs: Vital Signs Temperature 97.2 F L 07/31/24 11:46 Pulse Rate 74 07/31/24 11:46 Respiratory Rate 18 07/31/24 11:46 Blood Pressure 123/71 07/31/24 11:46 Pulse Oximetry 100 07/31/24 11:46 Oxygen Delivery Room Air 07/31/24 11:46 Temperature 97.2 F L 07/31/24 11:46 Pulse Rate 74 07/31/24 11:46 Respiratory Rate 18 07/31/24 11:46 Blood Pressure 123/71 07/31/24 11:46 Pulse Oximetry 100 07/31/24 11:46 Oxygen Delivery Room Air 07/31/24 11:46 Reviewed MDM - URI/Sore Throat MDM Narrative Medical decision making narrative: Patient sitting comfortably in exam room. Nontoxic, vitals stable. Patient presents with 4 day history of URI symptoms. Patient is flu A positive. Patient is appropriate for outpatient treatment with close follow-up Discharge instructions reviewed with patient, as well as provided in writing per nursing staff. The instructions also include specific and strict return/GO TO THE ER as well as f/u information. All questions have been answered, and the patient deny any further questions with discharge and discharge plan. Some parts of this dictation were generated by voice recognition software and may contain typographical and/or grammatical inaccuracies. Differential Diagnosis Differential diagnosis: Likely upper respiratory infection, otitis media, sinusitis, viral infection, bronchitis and influenza Lab Data Labs: Lab Results 07/31/24 Range/Units 12:58 POC Influenza A Ag Positive (Negative) POC Influenza B Ag Negative (Negative) POC SARS CoV-2 Ag Negative (Negative) Reviewed Critical Care Time Critical Care Time Critical Care Time: No Discharge Plan Discharge Clinical Impression: Influenza A Patient Disposition: Home, Self-Care Condition: Stable Instructions: Antibiotic Form, Influenza (ED) Additional Instructions: Your rapid COVID test were negative Your rapid flu test was positive for influenza A Your symptoms are due to a viral illness, which is not treated with antibiotics. Typically viral infections last 7-10 days, can linger for couple of weeks. It is very important to treat your symptoms. Drink plenty of water, Gatorade, Pedialyte, ice pops or Jell-O. -Alternate Tylenol and Motrin per package directions for fever or pain. You can alternate every 4 hours -Antihistamine medication such as Zyrtec/Claritin/Rebeca during the day can help improve symptoms. -doing daily nasal irrigations can help relieve pressure your sinuses. Things like a Neti pot -Use Flonase twice a day for 5 days then daily to help reduce the inflammation and dry up your sinuses. -You can also use Mucinex. Be sure to drink plenty of water with this medication at least 8 ounces with every dose and it is important to drink 8 to 10 glasses of water per day. Water is a natural decongestant -Eat and drink things that are easy to swallow, like tea or soup, or popsicles. -Oral rinses such as: Salt water gargles and/or may use topical anesthetic (eg. Chloraseptic spray) or lozenges to relieve dryness or throat pain). -Frequent hand washing or hand district customs director is one of the best ways to prevent spread of infection. -Using a vaporizer or humidifier at night will also help thin secretions and help with coughing up phlegm. -Follow up with primary care provider in 7-10 days if condition is not improving - For new or worsening symptoms go directly to the nearest ER Patient Language: Faroese Prescriptions: No Action midodrine 5 mg tablet 5 mg BID venlafaxine 150 mg capsule,extended release 24hr 150 mg PO DAILY aspirin [Adult Aspirin] 81 mg Tablet,Chewable 81 mg DAILY pantoprazole 40 mg tablet,delayed release (DR/EC) 40 mg PO DAILY meloxicam 15 mg tablet 15 mg PO DAILY cetirizine 10 mg tablet 10 mg DIRECTED fludrocortisone 0.1 mg tablet 0.1 mg PO DAILY metoprolol succinate 25 mg tablet extended release 24 hr 12.5 mg PO DAILY Follow-up/Referrals: Bruce,José Luis Cook [Other] - 2 Weeks ([facility] follow-up) Stand Alone Forms: Work/School Release IP Time of Disposition: 13:00
[2024-07-31 13:00] LABS: EDCOVIDSCREEN Negative (Negative); EDINFLUASCREEN Positive (Negative); EDINFLUBSCREEN Negative (Negative)
--- OUTSIDE RECORDS SUMMARY | 2024-07-31 13:35 | XMS_ITS | Continuity of Care Document ---
Author Organization [facility] Address [address] [place] [address] Phone Care Team Providers Care Metal Cutter Name Role Phone Lissa Irene Unavailable Unavailabl e Advance Directives Directive Yes / No Effective Date File Name No Information Encounters Encounter Description Practice Location Reason(s) For Visit Diagnoses Date Provider Providers Copied on Encounter [facility], [address], [place], [place], [id number], tel:[phone] [facility] No Information 2 Mirela Alcaraz. [address], [address], [place], [place], [id number] , . tel:[phone] Referring Provider: José Luis Cook, [address] [place] [address], [address] . tel:[phone] Family History Family Member Type Diagnosis Age At Onset No Information Payers Payer name Insurance type Covered alliance party ID Authoriza tion(s) No Information Social History Type Description Quantity Date Captured Comments Sex Female Smoking Status No Information Chief Complaint And Reason For Visit No Information Reason For Referral Reason For Referral No Information History Of Present Illness Encounter Date Complaint History Of Prese nt Illness No Information Functional Status Date Functional Assessmen t No Information Instructions Date Instruction Additional Infor mation No Information Assessments Type Assessment Date No Information Patient Care Teams Name Effective Dates (start - stop) Status Members No Information
--- OUTSIDE RECORDS SUMMARY | 2024-07-31 13:35 | XMS_ITS | Clinical Summary ---
Author Organization [facility] Address [address] [place] [address] Care Team Providers Care Bolt Header Name Role Phone José Luis Barrera MD Primary Care Provider [phone] Allergies No known active allergies Medications multivitamin capsule Take 1 tablet by mouth daily 03/31/2019 Active acetaminophen (TYLENOL) 500 mg tablet Take 500 mg by mouth every 6 (six) hours as needed Active aspirin 81 mg chewable tablet Take 81 mg by mouth daily Active fludrocortisone 0.1 mg tablet Take 0.1 mg by mouth daily 12/30/2019 Active midodrine (PROAMATINE) 5 mg tablet Take 5 mg by mouth 2 (two) times a day 12/29/2019 Active venlafaxine XR (EFFEXOR-XR) 150 mg 24 hr capsule Take 150 mg by mouth daily 12/29/2019 Active Surgical History Surgery Date Site/Laterality Comments HYSTERECTOMY Medical History Medical History Date Comments Urinary tract infection frequent Stroke (HCC) 1997 Hypertension Hyperlipidemia Dysphagia Chronic constipation Family History Medical History Relation Name Comments Colon cancer Maternal Grandmother Colon cancer Mother Relation Name Status Comments Maternal Grandmother Mother Social History Tobacco Use Types Packs/Day Years Used Date Smoking Tobacco: Former Cigarettes Q uit: 1994 Smokeless Tobacco: Never Comments:quit 1999 Alcohol Use Standard Drinks/Week Comments Not Currently 0 (1 standard drink = 0.6 oz pur e alcohol) AUDIT-C Answer Date Recorded Q1: How often do you have a drink containing alc ohol? Never 01/12/2022 Average Number of Drinks Not on file 022 Frequency of Binge Drinking Not on file 01/2022 Personal Safety Answer Date Recorded Have you ever been in or are you currently in a harmful physical or emotional relationship or is someone making you feel afraid or unsafe? 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 Gender Identity Not on file Sexual Orientation Not on file Obstetrics History Last Filed Vital Signs Vital Sign Reading Time Taken Comments Blood Pressure 150/78 01/17/2024 10:30 AM CDT Pulse 61 01/17/2024 10:30 AM CDT Temperature 36.7 C (98.1 F) 01/17/2024 8:53 AM CDT Respiratory Rate 13 01/17/2024 10:30 AM CDT Oxygen Saturation 100% 01/17/2024 10:30 AM CDT Inhaled Oxygen Concentration - - Weight 59 kg (130 lb) 01/12/2022 8:03 AM CDT Height 170.2 cm (5' 7 ) 01/12/2022 8:03 AM CDT Body Mass Index 20.36 01/12/2022 8:03 AM CDT Plan of Treatment Health Maintenance Due Date Last Done Comments Colon Cancer Screening-Colonoscopy 1963 Depression Screening 1963 Hepatitis C Screening 1963 Hepatitis B Screening 1981 Regular Well Visit/Exam 18-64 1981 Zoster Vaccine (1 of 2) 2013 Breast Cancer Screening-Mammogram 10/28/2021 021 Influenza Vaccine (#1) 2024 DTaP/Tdap/Td Vaccine (2 - Td or Tdap) 10/16/2026 10/16/2016 Pneumococcal vaccine <65 Aged Out No longer eligible based on patient's age to complete this topic Medical Devices Implanted Type [facility] Device Identifier Shelf Expiration Date Model / Serial / Lot Implantable Loop Recorder-11/09/19 19 Implanted:11/08 by Unknown, Notinfile (Quantity not on file) Implantable Loop Recorder Chest [employer] BIOMONITO [id number] / Insurance [place] Advance Directives For more information, please contact: [phone] * Full Code (Latest Code Status on File) Date Activated Date Inactivated Comments 01/17/2024 8:49 AM 01/17/2024 2:52 PM * Full Code Date Activated Date Inactivated Comments 01/12/2022 7:57 AM 01/12/2022 1:46 PM * Full Code Date Activated Date Inactivated Comments 01/15/2020 12:34 PM 01/15/2020 8:59 PM Care Teams Bolt Header Relationship Specialty Start Date End Date José Luis Barrera MD [address] [place] [address] PCP - General Family Medicine 01/12/24
--- OUTSIDE RECORDS SUMMARY | 2024-07-31 13:35 | XMS_ITS | Clinical Summary ---
Author Organization [employer] [facility] Address [address] [address] [place] [address] Phone Care Team Providers Care Syrup Blender Name Role Phone José Luis Barrera MD Primary Care Provider [phone] Allergies No known active allergies Medications aspirin (ASPIRIN LOW DOSE) 81 mg Tablet, Delayed Release (E.C.) Take 1 Tablet (81 mg) by mouth daily. 8 Active venlafaxine (EFFEXOR) 75 mg tablet Take 150 mg by mouth daily. Active oxybutynin chloride (DITROPAN XL) 15 mg Extended Release 24 hour tablet Take 15 mg by mouth daily. Active cetirizine (ZyrTEC) 10 mg tablet Take 10 mg by mouth daily. 2 Active meloxicam (MOBIC) 15 mg tablet Take 15 mg by mouth daily. 2 Active metoprolol succinate (TOPROL XL) 25 mg Extended Release 24 hour tabletIndications:P VC's (premature ventricular contractions),PAC (premature atrial contraction) Take 1/2 (one-half) tablet by mouth once daily 45 Tablet 1 4 Active LORazepam (ATIVAN) 0.5 mg tabletIndications:A nxiety attack Take 1 Tablet (0.5 mg) by mouth every 6 hours as needed for Anxiety. 15 Tablet 4 Active cefdinir (OMNICEF) 300 mg capsule Take 1 Capsule (300 mg) by mouth every 12 hours. 14 Capsule 4 Active midodrine (PROAMATINE) 10 mg Tablet Take 1 tablet by mouth twice daily 180 Tablet 4 Active fludrocortisone (FLORINEF) 0.1 mg tabletIndications:A bnormal echocardiogram Take 1 tablet by mouth once daily 90 Tablet Active Active Problems Problem Noted Date Diagnosed Date Mitral valve prolapse 01/12/2020 Hypotension 07/12/2019 Abnormal echocardiogram 04/18/2019 Left ventricular outflow tract obstruction 04/18 Scalp hematoma 09/17/2018 Syncope and collapse 09/17/2018 Closed head injury 09/17/2018 Encounters Date Type Department Care Team Description 07/26/2024 External Device Data [facility]STRACTION Provider, Abstract 07/04/2024 External Device Data [facility] Provider, Abstract 06/21/2024 External Device Data [facility] Provider, Abstract 06/20/2024 External Device Data [facility] Provider, Abstract 05/23/2024 External Device Data [facility] Provider, Abstract 05/23/2024 [facility] - [address] [facility] [address] [place] [address] Jaylen Jose MD Abnormal echocardiogram 05/22/2024 [facility] Heart [facility]ascular - [address] [address] [facility] [address] [address] [place] [address] Noah Solomon ANP from Last 3 Months Family History Medical History Relation Name Comments Heart Surgery Maternal Grandmother Relation Name Status Comments Maternal Grandmother Social History Tobacco Use Types Packs/Day Years Used Date Smoking Tobacco: Never Smokeless Tobacco: Never Tobacco Cessation:Counseling Given: Not Answered Alcohol Use Standard Drinks/Week Comments No 0 (1 standard drink = 0.6 oz pur e alcohol) Feeling Safe Answer Date Recorded Are you in a relationship wi th someone who hurts you emotionally and/or physically? No 03/25/2024 Comments No Sex and Gender Information Value Date Recorded Sex Assigned at Not on file Legal Sex Female 1:15 PM CDT Gender Identity Not on file Sexual Orientation Not on file Last Filed Vital Signs Vital Sign Reading Time Taken Comments Blood Pressure 137/84 03/25/2024 1:55 PM CDT Pulse 66 03/25/2024 12:55 PM CDT Temperature 36.6 C (97.8 F) 03/25/2024 10:52 AM CDT Respiratory Rate 16 03/25/2024 1:55 PM CDT Oxygen Saturation 100% 03/25/2024 12:55 PM CDT Inhaled Oxygen Concentration - - Weight 68 kg (150 lb) 03/25/2024 10:52 AM CDT Height 170.2 cm (5' 7 ) 03/25/2024 10:52 AM CDT Body Mass Index 23.49 03/25/2024 10:52 AM CDT Plan of Treatment Health Maintenance Due Date Last Done Comments CERVICAL CANCER SCREENING 1993 BREAST CANCER SCREENING 2003 FIT-DNA Q 3 years 2008 FIT/FOBT Q 1 year 2008 Flex Sig/CT Colonography Q 5 years 2008 ZOSTER VACCINE (1 of 2) 2013 INFLUENZA VACCINE (#1) 2024 DTAP/TDAP/TD VACCINES (2 - Td or Tdap) 10/16/2026 COLORECTAL SCREENING 06/27/2031 06/27/2021, 07/24/19 16 Colorectal Cancer Screening 06/27/2031 RSV VACCINE (60+ or ) (1 - 1-dose 75+ series) 2038 Insurance [facility] [employer] CHOICE Advance Directives For more information, please contact: [phone] * Full Code (Latest Code Status on File) Date Activated Date Inactivated Comments 09/17/2018 7:45 PM 09/19/2018 5:19 PM * Full Code Date Activated Date Inactivated Comments 03/06/2018 5:16 AM 03/06/2018 5:41 PM Care Teams Syrup Blender Relationship Specialty Start Date End Date José Luis Barrera MD [address] [address] PCP - General Family Practice 07/18/20
--- OUTSIDE RECORDS SUMMARY | 2024-07-31 13:35 | XMS_ITS | Referral Summary ---
Author Organization [facility] Address [address] [place] [address] Care Team Providers Care Math And Physics Instructor Name Role Phone José Luis Barrera MD Primary Care Provider [phone] Source Comments [facility],non-owned Affiliates and Associated Physician Practices is amultiple site organization consisting of ambulatory clinics and hospital sitesin [place], [place], [place] and [place]. This disclosure is being madepursuant to the Care Everywhere program and may not contain all information available regarding this patient. Last updated 18.[facility] Encounters Date Type Department Care Team Description 07/06/[address], [address] [phone] Laura Fontaine, MITOCHONDRIAL DISORDERS COUNSELOR-CLAIM AUDITOR Refill Request 05/23/[address], [address] [phone] José Luis Barrera MD Refill Request from Last 3 Months Allergies No known active allergies Medications * Be aware that medications may not be up to date on this document. Alwaysverify current medications with the patient. Medication Sig Dispensed Refills Start Date End Date Status aspirin (ASPIRIN) 81 MG chew tabletIndications:H ypertrophic obstructive cardiomyopathy (HOCM) (HCC) Take 1 (one) tablet by mouth once daily Active midodrine (PROAMATINE) 5 MG tablet Take 1 (one) tablet by mouth 2 times daily 01/29/2020 Active fludrocortisone (FLORINEF) 0.1 MG tablet 06/25/2020 Active metoprolol tartrate (LOPRESSOR) 25 MG tablet TAKE 1 2 (ONE HALF) TABLET BY MOUTH TWICE DAILY 12/23/2020 Active pantoprazole EC (Protonix) 40 MG tablet Take 1 (one) tablet by mouth once daily 10/16/2023 Active cefdinir (Omnicef) 300 MG capsule Take 1 (one) capsule by mouth 2 times daily 03/25/2024 Active LORazepam (Ativan) 0.5 MG tablet Take 1 (one) tablet by mouth every 6 hours as needed 03/25/2024 Active metoprolol succinate XL 24hr (Toprol XL) 25 MG tablet Take 0.5 (one-half) tablet by mouth once daily 03/20/2024 Active Venlafaxine HCl (venlafaxine ER 24hr) 225 MG tabletIndications:A nxiety Take 1 (one) tablet by mouth daily with breakfast 90 tablet 1 03/27/2024 Active meloxicam (Mobic) 15 MG tabletIndications:C ervical spondylosis with radiculopathy Take 1 tablet by mouth once daily 90 tablet 05/23/2024 Active cetirizine (ZyrTEC) 10 MG tabletIndications:S easonal allergies Take 1 tablet by mouth once daily 90 tablet 07/06/2024 Active cetirizine (ZyrTEC) 10 MG tabletIndications:S easonal allergies Take 1 tablet by mouth once daily 90 tablet 04/11/2024 5 Discontinued Active Problems Problem Noted Date Diagnosed Date History of transient ischemic attack 08/02/2020 Mitral valve prolapse 01/12/2020 Depressive disorder 10/16/2019 Abnormal echocardiogram 04/18/2019 Left ventricular outflow tract obstruction 04/18 Hypertrophic obstructive cardiomyopathy (HOCM) 0 11/16/2018 Atypical chest pain 03/22/2018 Peripheral vascular disease 05/18/2017 Immunizations Name Administration Dates Next Due TDAP (7yrs+) 10/16/2016 Social History Tobacco Use Types Packs/Day Years Used Date Smoking Tobacco: Former Cigarettes 1 982 - 1999 Smokeless Tobacco: Never Tobacco Cessation:Counseling Given: Not Answered Comments:Quit 30 yrs ago Alcohol Use Standard Drinks/Week Comments Not Currently 0 (1 standard drink = 0.6 oz pur e alcohol) PHQ-2 Answer Date Recorded Patient Health Questionnaire-2 Score 0 03/27/2024 Sex and Gender Information Value Date Recorded Sex Assigned at Not on file Gender Identity Not on file Sexual Orientation Not on file Last Filed Vital Signs Vital Sign Reading Time Taken Comments Blood Pressure 116/82 03/27/2024 3:33 PM CDT Pulse 64 03/27/2024 3:33 PM CDT Temperature 36.9 C (98.5 F) 10/26/2022 1:29 PM CDT Respiratory Rate 20 03/23/2024 2:05 PM CDT Oxygen Saturation 98% 03/27/2024 3:33 PM CDT Inhaled Oxygen Concentration - - Weight 68.9 kg (152 lb) 03/27/2024 3:33 PM CDT Height 170.2 cm (5' 7 ) 03/23/2024 2:05 PM CDT Body Mass Index 23.81 03/23/2024 2:05 PM CDT Plan of Treatment Not on file Procedures Procedure Name Priority Date/Time Associated Diagnosis Comments LIPID PROFILE Routine 11/11/2022 7:14 AM CDT Hypertrophic obstructive cardiomyopathy (HOCM) (HCC) Peripheral vascular disease (HCC) ENDOSCOPY, COLON, SCREENING Routine 06/27/2021 7:29 AM BENCH HAND MACHINE MAMMO BILAT SCREENING Routine 10/28/2020 Encounter for screening mammogram for malignant neoplasm of breast from Last 3 Months or Most Recently Relevant to Health Maintenance Results * (ABNORMAL) LIPID PROFILE (LIPID PANEL) (11/11/2022 7:14 AM CDT) Cholesterol 219(H) <200 mg/dL [facility] HDL Cholesterol 45(L) > OR = 50 mg/dL [facility] Triglycerides 65 <150 mg/dL [facility] LDL Calculated 158(H) mg/dL (calc) [facility] Comment: Reference range: <100 Desirable range <100 mg/dL for primary prevention; <70 mg/dL for patients with CHD or diabetic patients with > or = 2 CHD risk factors. LDL-C is now calculated using the Apolinar calculation, which is a validated novel method providing better accuracy than the Friedewald equation in the estimation of LDL-C. Paul LAYNE et al. JAKY. 2013;310(19): 5044-9439 (http://education.NoviMedicine.Diamond Kinetics/faq/ATL260) CHOL/HDLC RATIO 4.9 <5.0 (calc) [facility] Non HDL Cholesterol 174(H) <130 mg/dL (calc) [facility] Comment: For patients with diabetes plus 1 major ASCVD risk factor, treating to a non-HDL-C goal of <100 mg/dL (LDL-C of <70 mg/dL) is considered a therapeutic option. Test Performed at: [facility] [address] [place] [address] DANIEL SHER MD Blood BLOOD SPECIMEN / Unknown 11/11/2022 7:14 AM CDT 11/11/2022 7:15 AM CDT José Luis Barrera MD LAB - CHEMISTRY MICHELLE GARCIA [facility] Organization Address City/State/ZIP Co de Phone Number [facility] [address] [place] [address] * ENDOSCOPY, COLON, SCREENING (06/27/2021 7:29 AM BENCH HAND MACHINE) Report Endoscopy POC _ Patient Name: Rach Vega Procedure Date: 06/27/2021 7:29 AM Date of : 1965 Admit Type: Outpatient Age: 56 Gender: Female Ethnicity: Not or Race: White Attending MD: José Luis Looney MD _ Procedure: Colonoscopy Indications: Screening in patient at increased risk: Family history of 1st-degree relative with colorectal cancer Providers: José Luis Looney MD (Doctor), Dorothy Russell RN, Sejal Jones RN Referring MD: José Luis Barrera MD (Referring MD) Medicines: Monitored Anesthesia Care Complications: No immediate complications. _ Estimated Blood Loss: Estimated blood loss: none. Procedure: Pre-Anesthesia Assessment: - Prior to the procedure, a History and Physical was performed, and patient medications and allergies were reviewed. The patient's tolerance of previous anesthesia was also reviewed. The risks and benefits of the procedure and the sedation options and risks were discussed with the patient. All questions were answered, and informed consent was obtained. Prior Anticoagulants: The patient has taken no previous anticoagulant or antiplatelet agents. ASA Grade Assessment: II - A patient with mild systemic disease. After reviewing the risks and benefits, the patient was deemed in satisfactory condition to undergo the procedure. After I obtained informed consent, the scope was passed under direct vision. Throughout the procedure, the patient's blood pressure, pulse, and oxygen saturations were monitored continuously. The Colonoscope was introduced through the anus and advanced to the cecum, identified by appendiceal orifice and ileocecal valve. The colonoscopy was performed without difficulty. The patient tolerated the procedure well. The quality of the bowel preparation was good. The ileocecal valve, appendiceal orifice, and rectum were photographed. Impression: - One 5 mm polyp in the sigmoid colon, removed with a hot snare. Resected and retrieved. - Internal hemorrhoids. - The examination was otherwise normal. Findings: The perianal and digital rectal examinations were normal. A 5 mm polyp was found in the sigmoid colon. The polyp was sessile. The polyp was removed with a hot snare. Resection and retrieval were complete. Internal hemorrhoids were found during retroflexion. The hemorrhoids were small. The exam was otherwise without abnormality. _ Recommendation: - Resume previous diet. - Continue present medications. - Await pathology results. - Repeat colonoscopy in 5 years for surveillance. Procedure Code(s): --- Professional --- 99019, Colonoscopy, flexible; with removal of tumor(s), polyp(s), or other lesion(s) by snare technique --- Technical --- 49192, Colonoscopy, flexible; with removal of tumor(s), polyp(s), or other lesion(s) by snare technique Diagnosis Code(s): --- Professional --- Z80.0, Family history of malignant neoplasm of digestive organs K63.5, Polyp of colon K64.8, Other hemorrhoids --- Technical --- Z80.0, Family history of malignant neoplasm of digestive organs K63.5, Polyp of colon K64.8, Other hemorrhoids CPT copyright 2019 [employer]. All rights reserved. The codes documented in this report are preliminary and upon bakery and deli sales manager review may be revised to meet current compliance requirements. ___ José Luis Looney MD 06/27/2021 8:29:46 AM This report has been signed electronically. Number of Addenda: 0 Note Initiated On: 06/27/2021 7:[address] [facility] ENDOSCOPY 06/27/2021 7:29 AM BENCH HAND MACHINE José Luis Looney MD GI PROCEDURE ORDERAB LES [facility] ENDOSCOPY * MAMMO BILAT SCREENING (10/28/2020) Anatomical Region Laterality Modality Breast Bilateral Mammography José Luis Barrera MD MAMMO ORDERABLES from Last 3 Months or Most Recently Relevant to Health Maintenance Care Teams Math And Physics Instructor Relationship Specialty Start Date End Date José Luis Barrera MD [address] [phone] PCP - General Family Medicine 07/25/20
--- OUTSIDE RECORDS SUMMARY | 2024-07-31 13:35 | XMS_ITS | Clinical Summary ---
Author Organization [email or web address] Address [address] [place] [address] Care Team Providers Care Program Checker Name Role Phone José Luis Barrera MD Primary Care Provider [phone] Source Comments [email or web address],non-owned Affiliates and Associated Physician Practices is amultiple site organization consisting of ambulatory clinics and hospital sitesin [place], [place], [place] and [place]. This disclosure is being madepursuant to the Care Everywhere program and may not contain all information available regarding this patient. Last updated 18.[email or web address] Allergies No known active allergies Medications * [...] by mouth once daily 90 tablet 04/11/2024 Discontinued Active Problems Problem Noted Date Diagnosed Date History of transient ischemic attack 08/02/2020 Mitral valve prolapse 01/12/2020 Depressive disorder 10/16/2019 Abnormal echocardiogram 04/18/2019 Left ventricular outflow tract obstruction 04/18 Hypertrophic obstructive cardiomyopathy (HOCM) 0 11/16/2018 Atypical chest pain 03/22/2018 Peripheral vascular disease 05/18/2017 Encounters Date Type Department Care Team Description 07/06/2024 Refill [facility] Family Medicine [address] [place] [phone] Laura Fontaine, DIE GRINDER-APPRENTICE FUNERAL DIRECTOR Refill Request 05/23/2024 Refill [facility] [address] [phone] José Luis Barrera MD Refill Request from Last 3 Months Immunizations Name Administration Dates Next Due TDAP (7yrs+) 10/16/2016 Family History Medical History Relation Name Comments Cancer - Bladder Father Cancer - Colon Mother Relation Name Status Comments Father Mother Social History Tobacco Use Types Packs/Day [...] 03/23/2024 2:05 PM CDT Plan of Treatment Health Maintenance Due Date Last Done Comments COLOGUARD (AGES 45-75) - COLON CA SCREENING 1965 CT COLONOGRAPHY - COLON CA SCREENING 1965 FIT - COLON CA SCREENING 1965 FLEX SIG - COLON CA SCREENING 1965 PNEUMOCOCCAL VACCINE 50+ (1 of 1 - PCV) 2013 ZOSTER VACCINE (1 of 2) 2013 MAMMOGRAM 10/28/2022 10/28/2020, 01/06 (Done Outside Per Report) Respiratory Syncytial Virus (RSV) Vaccine Pt: or over 60 yrs (1 - Risk 60-74 years 1-dose series) 2023 COVID-19 VACCINE (1 - season) 2024 DEPRESSION SCREENING 06/07/2024 03/23/2024, 10/26/2022, 03/16/2022 INFLUENZA VACCINE (#1) 2024 Postp oned from 02/06/2024 (Patient Refused) COLON MONITORING 06/27/2026 06/27/2021, , 06/27/2021 Colorectal Cancer Screening 06/27/2026 DTAP/TDAP/TD VACCINES (2 - Td or Tdap) 10/16/2026 10/16/2016 LIPID TESTING 11/12/2027 11/11/2022, 10/18/2021 COLONOSCOPY - COLON CA SCREENING 06/27/2031 06/27/2021, 06/27/2021, 06/27/2021, Additional history exists HEPATITIS B VACCINE Aged Out No longe r eligible based on patient's age to complete this topic HEPATITIS C SCREENING Discontinued HIB VACCINE Aged Out No longer eligi ble based on patient's age to complete this topic HIV SCREENING Discontinued HPV VACCINE Aged Out No longer eligi ble based on patient's age to complete this topic MENINGOCOCCAL (Group B) VACCINE Aged Out No longer eligible based on patient's age to complete this topic MENINGOCOCCAL VACCINE Aged Out No anamaria alexandra eligible based on patient's age to complete this topic PAP SMEAR Discontinued Procedures Procedure Name Priority Date/Time Associated Diagnosis Comments LIPID PROFILE Routine 11/11/2022 7:14 AM CDT Hypertrophic obstructive cardiomyopathy (HOCM) (HCC) Peripheral vascular disease (HCC) ENDOSCOPY, COLON, SCREENING Routine 06/27/2021 7:29 AM COMMUNITY HEALTH EDUCATOR MAMMO BILAT SCREENING Routine 10/28/2020 Encounter for [...] LDL-C. Paul LAYNE et al. JAKY. 2013;310(19): 4471-6117 (http://education.Aradigm.[employer]us [employer]/faq/NNF768) CHOL/HDLC RATIO 4.9 <5.0 (calc) [facility] Non HDL Cholesterol 174(H) <130 mg/dL (calc) [facility] Comment: For patients with diabetes plus 1 major ASCVD risk factor, treating to a non-HDL-C goal of <100 mg/dL (LDL-C of <70 mg/dL) is considered a therapeutic option. Test Performed at: [email or web address] [address] [place] [address] DANIEL SHER MD Blood BLOOD SPECIMEN / Unknown 11/11/2022 7:14 AM CDT 11/11/2022 7:15 AM CDT José Luis Barrera MD LAB - CHEMISTRY MICHELLE GARCIA [facility] Organization Address City/State/ZIP Co de Phone Number [facility] [address] [place] [address] * ENDOSCOPY, COLON, SCREENING (06/27/2021 7:29 AM COMMUNITY HEALTH EDUCATOR) Report Endoscopy POC _ Patient Name: Rach Vega Procedure Date: 06/27/2021 7:29 AM Date of : 1965 Admit Type: Outpatient Age: 56 Gender: Female Ethnicity: Not or Race: White Attending MD: José Luis Looney MD _ Procedure: Colonoscopy Indications: Screening in patient at increased risk: Family history of 1st-degree relative with colorectal cancer Providers: José Luis Looney MD (Doctor), Dorothy Russell RN, Seajl Jones RN Referring MD: José Luis Brarera MD (Referring MD) Medicines: Monitored Anesthesia Care [...] for surveillance. Procedure Code(s): --- Professional --- 00836, Colonoscopy, flexible; with removal of tumor(s), polyp(s), or other lesion(s) by snare technique --- Technical --- 79478, Colonoscopy, flexible; with removal of tumor(s), polyp(s), or other lesion(s) by snare technique Diagnosis Code(s): --- Professional --- Z80.0, Family history of malignant neoplasm of digestive organs K63.5, Polyp of colon K64.8, Other hemorrhoids --- Technical --- Z80.0, Family history of malignant neoplasm of digestive organs K63.5, Polyp of colon K64.8, Other hemorrhoids CPT copyright 2019 [employer]. All rights reserved. The codes documented in this report are preliminary and upon counseling department chair review may be revised to meet current compliance requirements. ___ José Luis Looney MD 06/27/2021 8:29:46 AM This report has been signed electronically. Number of Addenda: 0 Note Initiated On: 06/27/2021 7:29 AM [facility] ENDOSCOPY 06/27/2021 7:29 AM COMMUNITY HEALTH EDUCATOR José Luis Looney MD GI PROCEDURE ORDERAB LES [facility] ENDOSCOPY * MAMMO BILAT SCREENING (10/28/2020) Anatomical Region Laterality Modality Breast Bilateral Mammography José Luis Barrera MD MAMMO ORDERABLES from Last 3 Months or Most Recently Relevant to Health Maintenance Care Teams Program Checker Relationship Specialty Start Date End Date José Luis Barrera MD [address] [phone] PCP - General Family Medicine 07/25/20
--- OUTSIDE RECORDS SUMMARY | 2024-07-31 13:35 | XMS_ITS | Patient Health Summary ---
Author Organization [facility] Address [address] [place] [address] Care Team Providers Care Cab Worker Name Role Phone José Luis Barrera MD Primary Care Provider [phone] Note from [facility],non-owned Affiliates and Associated Physician Practices is amultiple site organization consisting of ambulatory clinics and hospital sitesin [place], [place] and [place]. This disclosure is being madepursuant to the Care Everywhere program and may not contain all information available regarding this patient. Last updated 18.[facility] Allergies No known active allergies Medications * Be aware that medications may not be up to date on this document. Alwaysverify current medications with the patient. * aspirin (ASPIRIN) 81 MG chew tablet Take 1 (one) tablet by mouth once daily * midodrine (PROAMATINE) 5 MG tablet(Started 01/29/2020) Take 1 (one) tablet by mouth 2 times daily * fludrocortisone (FLORINEF) 0.1 MG tablet(Started 06/25/2020) * metoprolol tartrate (LOPRESSOR) 25 MG tablet(Started 12/23/2020) TAKE 1 2 (ONE HALF) TABLET BY MOUTH TWICE DAILY * pantoprazole EC (Protonix) 40 MG tablet(Started 10/16/2023) Take 1 (one) tablet by mouth once daily * cefdinir (Omnicef) 300 MG capsule(Started 03/25/2024) Take 1 (one) capsule by mouth 2 times daily * LORazepam (Ativan) 0.5 MG tablet(Started 03/25/2024) Take 1 (one) tablet by mouth every 6 hours as needed * metoprolol succinate XL 24hr (Toprol XL) 25 MG tablet(Started 03/20/2024) Take 0.5 (one-half) tablet by mouth once daily * Venlafaxine HCl (venlafaxine ER 24hr) 225 MG tablet(Started 03/27/2024) Take 1 (one) tablet by mouth daily with breakfast 1 refill by 03/27/2025 * meloxicam (Mobic) 15 MG tablet(Started 05/23/2024) Take 1 tablet by mouth once daily * cetirizine (ZyrTEC) 10 MG tablet(Started 07/06/2024) Take 1 tablet by mouth once daily Ended Medications* cetirizine (ZyrTEC) 10 MG tablet(Started 04/11/2024) (Discontinued) Take 1 tablet by mouth once daily Active Problems Problem Noted Date Diagnosed Date History of transient ischemic attack 08/02/2020 Mitral valve prolapse 01/12/2020 Depressive disorder 10/16/2019 Abnormal echocardiogram 04/18/2019 Left ventricular outflow tract obstruction 04/18 Hypertrophic obstructive cardiomyopathy (HOCM) 0 11/16/2018 Atypical chest pain 03/22/2018 Peripheral vascular disease 05/18/2017 Immunizations * TDAP (7yrs+)(Given 10/16/2016) Social History Tobacco Use Types Packs/Day Years [...] Mass Index 23.81 03/23/2024 2:05 PM CDT Procedures * XR ABDOMEN KUB(Performed 03/23/2024) Performed for Right flank pain * URINALYSIS AUTO - POINT OF CARE(Performed 03/23/2024) Performed for Dysuria * CULTURE URINE(Performed 03/23/2024) Performed for Dysuria * TSH(Performed 10/29/2023) Performed for Frequent urination, Weight gain, Chronic constipation, Hemoptysis, Gastroesophageal reflux disease, unspecified whether esophagitis present * D-DIMER(Performed 10/29/2023) Performed for Frequent urination, Weight gain, Chronic constipation, Hemoptysis, Gastroesophageal reflux disease, unspecified whether esophagitis present * COMPREHENSIVE METABOLIC PANEL(Performed 10/29/2023) Performed for Frequent urination, Weight gain, Chronic constipation, Hemoptysis, Gastroesophageal reflux disease, unspecified whether esophagitis present * CBC W AUTO DIFFERENTIAL(Performed 10/29/2023) Performed for Frequent urination, Weight gain, Chronic constipation, Hemoptysis, Gastroesophageal reflux disease, unspecified whether esophagitis present * CULTURE URINE(Performed 10/29/2023) Performed for Frequent urination * URINALYSIS AUTO - POINT OF CARE(Performed 10/29/2023) Performed for Frequent urination * VITAMIN D 25-HYDROXY(Performed 11/11/2022) Performed for Vitamin D deficiency * CBC W AUTO DIFFERENTIAL(Performed 11/11/2022) Performed for Hypertrophic obstructive cardiomyopathy (HOCM) (HCC), Peripheral vascular disease (HCC) * COMPREHENSIVE METABOLIC PANEL(Performed 11/11/2022) Performed for Hypertrophic obstructive cardiomyopathy (HOCM) (HCC), Peripheral vascular disease (HCC) * LIPID PROFILE(Performed 11/11/2022) Performed for Hypertrophic obstructive cardiomyopathy (HOCM) (HCC), Peripheral vascular disease (HCC) * XR CHEST 2VW(Performed 10/26/2022) Performed for Chronic cough * URINALYSIS AUTO - POINT OF CARE(Performed 08/28/2022) Performed for Urinary retention * C-REACTIVE PROTEIN(Performed 03/25/2022) Performed for Cervical spondylosis with radiculopathy * ESVIN BLOOD SCREEN W/REFLEX TITER(Performed 03/25/2022) Performed for Cervical spondylosis with radiculopathy * RHEUMATOID FACTOR BLOOD QUANTITATIVE(Performed 03/25/2022) Performed for Cervical spondylosis with radiculopathy * ERYTHROCYTE SEDIMENTATION RATE(Performed 03/25/2022) Performed for Cervical spondylosis with radiculopathy * XR CERVICAL SPINE 4 OR 5VW(Performed 03/16/2022) Performed for Cervical spondylosis with radiculopathy * XR CHEST 2VW(Performed 03/16/2022) Performed for Chronic cough * IMAGING/RADIOLOGY/XRAY RESULTS ORDER(Performed 12/24/2021) * XR SHOULDER RIGHT 2VW OR MORE(Performed 10/27/2021) Performed for Right arm pain * XR ELBOW RIGHT 3VW OR MORE(Performed 10/27/2021) Performed for Right arm pain * TSH(Performed 10/18/2021) Performed for Well adult exam * LIPID PROFILE(Performed 10/18/2021) Performed for Well adult exam * COMPREHENSIVE METABOLIC PANEL(Performed 10/18/2021) Performed for Well adult exam * CBC W AUTO DIFFERENTIAL(Performed 10/18/2021) Performed for Well adult exam * PATHOLOGY TISSUE EXAM (STL)(Performed 06/27/2021) Performed for Screen for colon cancer * COLONOSCOPY REMOVAL OR ABLATION TUMOR/POLYP/LESION (ANY METHOD)(Performed 06/27/2021) Performed for Screen for colon cancer * COLONOSCOPY SCREEN(Performed 06/27/2021) Performed for Screen for colon cancer * ENDOSCOPY, COLON, SCREENING(Performed 06/27/2021) * ENDOSCOPY ORDER(Performed 01/13/2021) * IMAGING/RADIOLOGY/XRAY RESULTS ORDER(Performed 12/30/2020) * MAMMO BILAT SCREENING(Performed 10/28/2020) Performed for Encounter for screening mammogram for malignant neoplasm of breast * ECHOCARDIOGRAM TRANSESOPHAGEAL(Performed 11/21/2018) Performed for Hypertrophic obstructive cardiomyopathy (HOCM) (HCC) Results * XR Abdomen Kub (03/23/2024 2:26 PM CDT) Anatomical Region Laterality Modality Abdomen Radiographic Saida ging 03/23/2024 2:34 PM CDT Narrative 03/23/2024 2:37 PM CDT EXAM: XR ABDOMEN KUB INDICATION: R10.9: Unspecified abdominal pain , right flank pain COMPARISON: None FINDINGS: Nonobstructive bowel gas pattern. Moderate stool burden seen throughout the colon. No definite renal calculi identified. Small round calcification within the left pelvis likely represents a phlebolith given history of right flank pain. Presumed tubal ligation clips are seen within the pelvis. > Interpreting Provider: Alpesh Garcia MD on 03/23/2024 2:37 PM Procedure Note Alpesh Garcia MD - 03/23/2024 EXAM: XR ABDOMEN KUB INDICATION: R10.9: Unspecified abdominal pain , right flank pain COMPARISON: None FINDINGS: Nonobstructive bowel gas pattern. Moderate stool burden seen throughoutthe colon. No definite renal calculi identified. Small round calcification within the left pelvis likely represents a phlebolith given history of right flank pain. Presumed tubal ligation clips are seen within thepelvis. > Interpreting Provider: Alpesh Garcia MD on 03/23/2024 2:37 PM Nunu Alvarado NEW VEHICLE SALES CONSULTANT-ASSOCIATE FINANCIAL REPRESENTATIVE DI AGNOSTIC IMAGING ORDERABLES * URINALYSIS AUTO - POINT OF CARE (03/23/2024 2:08 PM CDT) Only the most recent of3 resultswithin the time period is included. Clarity UA POCT cloudy [facility] Color UA POCT brown [facility] Leukocyte UA 1+ Negative [facility] [place] Nitrite UA POCT Neg Negative [facility] Urobilinogen UA 0.2 0.1 - 1.0 [facility] Protein UA POCT 2+ Negative [facility] pH UA 5.5 5.0 - 8.0 pH units [facility] Blood UA 3+ Negative [facility] [place] Specific [place] UA POCT 1.030 1.002 - 1.030 [facility] [place] Ketone UA neg Negative [facility] [place] Bilirubin UA POCT 1+ Negative [facility] [place] Glucose UA Neg Negative [facility] [place] Urine URINE / Unknown 03/23/2024 2 :08 PM CDT Nunu Alvarado NEW VEHICLE SALES CONSULTANT-ASSOCIATE FINANCIAL REPRESENTATIVE LA B - POINT OF CARE ORDERABLES [facility] [address], [place] [address], [facility] [phone] * (ABNORMAL) CULTURE URINE (03/23/2024 2:01 PM CDT) Only the most recent of2 resultswithin the time period is included. Urine Culture Routine Final report(A) [facility] ACCOUNT BILL Comment: Performed at: - [address] [id number] Photo Finish Photographer: Leonel Vilchis PhD, Phone: [phone] Result 1 Comment(A) [facility] ACCOUNT BILL Comment: Escherichia coli, identified by an automated biochemical system. Cefazolin <=4 ug/mL Cefazolin with an HILLARY <=16 predicts susceptibility to the oral agents cefaclor, cefdinir, cefpodoxime, cefprozil, cefuroxime, cephalexin, and loracarbef when used for therapy of uncomplicated urinary tract infections due to E. coli, Klebsiella pneumoniae, and Proteus mirabilis. 50,000-100,000 colony forming units per mL Antimicrobial Susceptibility Comment [facility] ACCOUNT BILL Comment: S = Susceptible; I = Intermediate; R = Resistant P = Positive; N = Negative MICS are expressed in micrograms per mL Antibiotic RSLT#1 RSLT#2 RSLT#3 RSLT#4 Amoxicillin/Clavulanic Acid S Ampicillin R Cefepime S Ceftriaxone S Cefuroxime S Ciprofloxacin S Ertapenem S Gentamicin S Imipenem S Levofloxacin S Meropenem S Nitrofurantoin S Piperacillin/Tazobactam S Tetracycline R Tobramycin S Trimethoprim/Sulfa R Urine URINE SPECIMEN OBTAINED BY CLEAN CATCH PROCEDURE / Unknown 03/23/2024 2:01 PM CDT 03/23/2024 Comment:Urine - clean catch R Narrative [facility] ACCOUNT BILL - 03/27/2024 5:08 PM CDT Performed at: 01 - [address] [id number] Photo Finish Photographer: Leonel Vilchis PhD, Phone: [phone] Nunu Alvarado APRN-ASSOCIATE FINANCIAL REPRESENTATIVE LA B - MICROBIOLOGY ORDERABLES [facility] ACCOUNT [address] [place] [address] * (ABNORMAL) D-DIMER (10/29/2023 12:20 PM CDT) Pathologist [facility] [place] D-Dimer 0.57(H) <0.50 mcg/mL FEU [facility] Comment: The D-Dimer test is used frequently to exclude an acute PE or DVT. In patients with a low to moderate clinical risk assessment and a D-Dimer result <0.50 mcg/mL FEU, the likelihood of a PE or DVT is very low. However, a thromboembolic event should not be excluded solely on the basis of the D-Dimer level. Increased levels of D-Dimer are associated with a PE, DVT, DIC, malignancies, inflammation, sepsis, surgery, trauma, , and advancing patient age. [Jaky 2006 11:295(2):199-207' For additional information, please refer to: http://education.Sonalight/faq/TKO529 (This link is being provided for informational/ educational purposes only) Test Performed at: [facility] [address] [place] [address] DANIEL SHER MD Blood BLOOD SPECIMEN / Unknown 10/29/2023 12:20 PM CDT 10/29/2023 12:21 PM CDT Quiana Pryor MD LAB - COAGULATION ORDERABLES [facility] [address] [place] [address] * CBC WITH DIFFERENTIAL (10/29/2023 12:20 PM CDT) Only the most recent of3 resultswithin the time period is included. Pathologist [facility] White Blood Cell Count 9.0 3.8 - 10.8 Thousand/u L [facility] RBC 3.94 3.80 - 5.10 Million/uL [facility] Hemoglobin 12.4 11.7 - 15.5 g/dL [facility] Hematocrit 37.9 35.0 - 45.0 % [facility] MCV 96.2 80.0 - 100.0 fL [facility] MCH 31.5 27.0 - 33.0 pg [facility] MCHC 32.7 32.0 - 36.0 g/dL [facility] RDW 12.7 11.0 - 15.0 % [facility] Platelet Count 324 140 - 400 Thousand/u L [facility] MPV 11.1 7.5 - 12.5 fL [facility] Neutrophil Absolute 4689 1500 - 7800 cells/uL [facility] Absolute Bands [facility] Metamyelocytes Absolute [facility] Myelocytes Absolute [facility] Absolute Prolymphocytes [facility] Lymphocytes Absolute 3465 850 - 3900 cells/uL [facility] Absolute Monocytes 576 200 - 950 cells/uL [facility] Eosinophils Absolute 198 15 - 500 cells/uL [facility] Basophils Absolute 72 0 - 200 cells/uL [facility] Absolute Blasts [facility] nRBC Absolute [facility] Granulocytes % 52.1 % [facility] Band Neutrophil [facility] Metamyelocytes [facility] Myelocytes [facility] Promyelocytes [facility] Lymphocytes % 38.5 % [facility] Lymphocyte Reactive [facility] Monocytes % 6.4 % [facility] Eosinophils % 2.2 % [facility] Basophils % 0.8 % [facility] Comment: Test Performed at: [place] [address] DANIEL SHER MD Blasts [facility] nRBC [facility] Comments [facility] Comment: Test Performed at: [email or web address] [address] DANIEL SHER MD Blood BLOOD SPECIMEN / Unknown 10/29/2023 12:20 PM CDT 10/29/2023 12:21 PM CDT Quiana Pryor MD LAB - HEMATOLOGY O RDERABLES [facility] [address] [place] [address] * COMPREHENSIVE METABOLIC PANEL (10/29/2023 12:20 PM CDT) Only the most recent of3 resultswithin the time period is included. Glucose 90 65 - 99 mg/dL [facility] Comment: Fasting reference interval BUN 17 7 - 25 mg/dL [facility] Creatinine 0.72 0.50 - 1.05 mg/dL [facility] eGFR by Cystatin C 96 > OR = 60 mL/min/1. 73m2 [facility] BUN/Creatinine Ratio SEE NOTE: (calc) [facility] Comment: Not Reported: BUN and Creatinine are within reference range. Sodium 142 135 - 146 mmol/L [facility] Potassium 4.1 3.5 - 5.3 mmol/L [facility] Chloride 103 98 - 110 mmol/L [facility] CO2 30 20 - 32 mmol/L [facility] Calcium 10.2 8.6 - 10.4 mg/dL [facility] Protein Total 7.6 6.1 - 8.1 g/dL [facility] Albumin 4.9 3.6 - 5.1 g/dL [facility] Globulin Total 2.7 1.9 - 3.7 g/dL (calc) [facility] Albumin/Globulin Ratio 1.8 1.0 - 2.5 (calc) [facility] Bilirubin Total 0.5 0.2 - 1.2 mg/dL [facility] Alkaline Phosphatase 106 37 - 153 U/L [facility] AST 23 10 - 35 U/L [facility] ALT 23 6 - 29 U/L [facility] Comment: Test Performed at: [place] [address] DANIEL SHER MD Blood BLOOD SPECIMEN / Unknown 10/29/2023 12:20 PM CDT 10/29/2023 12:21 PM CDT Quiana Pryor MD LAB - CHEMISTRY OR DERABLES Performing Organization Address City/[facility] Co de Phone Number [facility] [address] [place] [address] * TSH (10/29/2023 12:20 PM CDT) Only the most recent of2 resultswithin the time period is included. [facility] TSH 2.92 0.40 - 4.50 mIU/L [facility] Comment: Test Performed at: [place] [address] DANIEL SHER MD Blood BLOOD SPECIMEN / Unknown 10/29/2023 12:20 PM CDT 10/29/2023 12:21 PM CDT Quiana Pryor MD LAB - CHEMISTRY OR DERABLES Performing Organization Address City/[facility]/ZIP Co de Phone Number [facility] [address] [place] [address] * VITAMIN D 25-HYDROXY (11/11/2022 7:14 AM CDT) [facility] Vitamin D, 25 Hydroxy 43 30 - 100 ng/mL [facility] Comment: Vitamin D Status 25-OH Vitamin D: Deficiency: <20 ng/mL Insufficiency: 20 - 29 ng/mL Optimal: > or = 30 ng/mL For 25-OH Vitamin D testing on patients on D2-supplementation and patients for whom quantitation of D2 and D3 fractions is required, the QuestAssureD(TM) 25-OH VIT D, (D2,D3), LC/MS/MS is recommended: order code 19683 (patients >2yrs). See Note 1 Note 1 For additional information, please refer to http://E96.eLong.com/faq/TRM938 (This link is being provided for informational/ educational purposes only.) REPORT COMMENT: FASTING:YES Test Performed at: [facility] [address] [place] [address] DANIEL SHER MD Blood BLOOD SPECIMEN / Unknown 11/11/2022 7:14 AM CDT 11/11/2022 7:15 AM CDT José Luis Barrera MD [facility] Organization Address City/State/ZIP Co de Phone Number [facility] [address] [place] [address] * (ABNORMAL) LIPID PROFILE (LIPID PANEL) (11/11/2022 7:14 AM CDT) Only the most recent of2 resultswithin the time period is included. Cholesterol 219(H) <200 mg/dL [facility] HDL Cholesterol [...] LDL-C. Paul LAYNE et al. JAKY. 2013;310(19): 8645-1372 (http://education.The Smartphone Physical.BiondVax/faq/ZIM643) CHOL/HDLC RATIO 4.9 <5.0 (calc) [facility] Non HDL Cholesterol 174(H) <130 mg/dL (calc) [facility] Comment: For patients with diabetes plus 1 major ASCVD risk factor, treating to a non-HDL-C goal of <100 mg/dL (LDL-C of <70 mg/dL) is considered a therapeutic option. Test Performed at: [facility] [address] [place] [address] DANIEL SHER MD Blood BLOOD SPECIMEN / Unknown 11/11/2022 7:14 AM CDT 11/11/2022 7:15 AM CDT José Luis Barrera MD LAB - CHEMISTRY ORDE JOSE [facility] Organization Address City/State/ZIP Co de Phone Number [facility] [address] [place] [address] * XR CHEST 2VW (10/26/2022 2:25 PM CDT) Only the most recent of2 resultswithin the time period is included. Anatomical Region Laterality Modality Chest Radiographic Saida ging 10/26/2022 3:54 PM CDT Impressions 10/26/2022 3:55 PM CDT Impression: No active disease > Interpreting Provider: David Sethi MD on 10/26/2022 3:55 PM Narrative 10/26/2022 3:55 PM CDT PROCEDURE: XR CHEST 2VW, DATE/TIME OF EXAM: 10/26/2022 2:25 PM, LOCATION [facility] INDICATION: R05.3: Chronic cough ADDITIONAL CLINICAL INFORMATION: Ordering Provider Reason For Exam: Technologist Note: Additional: Cough congestion shortness of breath with exertion. Wheezing fever COMPARISON: March 16, 2022 History: Shortness of breath Findings: The heart size is normal. Hyperexpansion. Aortic mild elongation. The pulmonary vessels are normal. The lungs are clear. No lobar consolidation or mobile pleural effusion. No paraspinal soft tissue swelling. No hilar enlargement or major airway displacement. Procedure Note David Sethi MD - 10/26/2022 PROCEDURE: XR CHEST 2VW, DATE/TIME OF EXAM: 10/26/2022 2:25 PM, LOCATION [facility] INDICATION: R05.3: Chronic cough ADDITIONAL CLINICAL INFORMATION: Ordering Provider Reason For Exam: Technologist Note: Additional: Cough congestion shortness of breath with exertion.Wheezing fever COMPARISON: March 16, 2022 History: Shortness of breath Findings: The heart size is normal. Hyperexpansion. Aortic mild elongation. The pulmonary vessels are normal. The lungs are clear. No lobarconsolidation or mobile pleural effusion. No paraspinal soft tissue swelling. No hilar enlargement or major airway displacement. Impression: No active disease > Interpreting Provider: David Sethi MD on 10/26/2022 3:55 PM José Luis Barrera MD DIAGNOSTIC IMAGING O RDERABLES * RHEUMATOID FACTOR BLOOD QUANTITATIVE (RF) (03/25/2022 9:33 AM CDT) Pathologist [facility] Rheumatoid Factor <14 <14 IU/mL [facility] Comment: Test Performed at: [facility] [address] ALICE SOLIS DO,MPH Blood BLOOD SPECIMEN / Unknown 03/25/2022 9:33 AM CDT 03/25/2022 9:34 AM CDT José Luis Barrera MD LAB - CHEMISTRY MICHELLE GARCIA Performing Organization Address [facility] Co de Phone Number [facility] [address] [place] [address] * C-REACTIVE PROTEIN (CRP) (03/25/2022 9:33 AM CDT) Pathologist [facility] C-Reactive Protein 2.1 <8.0 mg/L [facility] Comment: Test Performed at: [facility] [address] [address] ALICE SOLIS DO,MPH Blood BLOOD SPECIMEN / Unknown 03/25/2022 9:33 AM CDT 03/25/2022 9:34 AM CDT José Luis Barrera MD LAB - CHEMISTRY MICHELLE GARCIA Performing Organization Address [facility] Co de Phone Number [facility] [address] [place] [address] * ESVIN BLOOD SCREEN W/REFLEX TITER (03/25/2022 9:33 AM CDT) ESVIN Screen NEGATIVE NEGATIVE [facility] Comment: ESVIN IFA is a first line screen for detecting the presence of up to approximately 150 autoantibodies in various autoimmune diseases. A negative ESVIN IFA result suggests an ESVIN-associated autoimmune disease is not present at this time, but is not definitive. If there is high clinical suspicion for Sjogren's syndrome, testing for anti-SS-A/Ro antibody should be considered. Anti-Mimi-1 antibody should be considered for clinically suspected inflammatory myopathies. AC-0: Negative International Consensus on ESVIN Patterns (https://doi.org/10.1515/rhjw-6086-0286) For additional information, please refer to http://education.eLong.com/faq/RKZ154 (This link is being provided for informational/ educational purposes only.) Test Performed at: [facility] [address] [employer] [facility] [employer] [address] ALICE SOLIS DO,MPH Blood BLOOD SPECIMEN / Unknown 03/25/2022 9:33 AM CDT 03/25/2022 9:34 AM CDT José Luis Barrera MD LAB - CHEMISTRY ORDE JOSE Performing Organization Address [facility] Co de Phone Number [facility] [address] [place] [address] * ERYTHROCYTE SEDIMENTATION RATE (03/25/2022 9:33 AM CDT) Pathologist [facility] Erythrocyte Sedimentation Rate Westergren 9 < OR = 30 mm/h [facility] Comment: Test Performed at: [facility] [address] [address] [address] ALICE SOLIS DO,MPH Blood BLOOD SPECIMEN / Unknown 03/25/2022 9:33 AM CDT 03/25/2022 9:34 AM CDT José Luis Barrera MD LAB - HEMATOLOGY ORD ERABLES Performing Organization Address [facility] Co de Phone Number [facility] [address] [place] [address] * XR CERVICAL SPINE 4 OR 5VW (03/16/2022 4:36 PM CDT) Anatomical Region Laterality Modality Spine Radiographic Saida ging 03/17/2022 4:16 PM CDT Narrative 03/17/2022 4:16 PM CDT PROCEDURE(s): XR CERVICAL SPINE 4 OR 5VW; DATE AND TIME OF EXAM(s): 03/16/2022 4:36 PM; LOCATION: [facility] INDICATION(s): M47.22: Other spondylosis with radiculopathy, cervical region COMPARISON(s): None available. FINDINGS/IMPRESSION: There is straightening of normal cervical lordosis, a chronic and nonspecific finding. Minimal multilevel cervical spondylosis and facet arthropathy is seen. The soft tissues are unremarkable. > Interpreting Provider: Melony Man MD on 03/17/2022 4:16 PM Procedure Note Melony Man MD - 03/17/2022 PROCEDURE(s): XR CERVICAL SPINE 4 OR 5VW; DATE AND TIME OF EXAM(s): 03/16/2022 4:36 PM; LOCATION: [facility] INDICATION(s): M47.22: Other spondylosis with radiculopathy, cervical region COMPARISON(s): None available. FINDINGS/IMPRESSION: There is straightening of normal cervical lordosis, a chronic and nonspecific finding. Minimal multilevel cervical spondylosis and facet arthropathy is seen. The soft tissues are unremarkable. > Interpreting Provider: Melony Man MD on 03/17/2022 4:16 PM José Luis Barrera MD DIAGNOSTIC IMAGING O RDERABLES * IMAGING RADIOLOGY XRAY RESULTS ORDER (12/24/2021) Only the most recent of2 resultswithin the time period is included. Anatomical Region Laterality Modality Other 12/24/2021 Narrative 12/24/2021 Ordered by an unspecified provider. Scanned Document IMAGING * XR SHOULDER RIGHT 2VW OR MORE (10/27/2021 2:20 PM CDT) Anatomical Region Laterality Modality Upper Extremity Radiographic Saida ging 10/28/2021 3:12 PM CDT Impressions 10/28/2021 3:25 PM CDT MILD DEGENERATIVE CHANGES. Edited by Mehreen Helm on 10/28/2021 3:21 PM *Reading Radiologist: Karan Underwood on 10/28/2021 at 3:25 PM Narrative 10/28/2021 3:25 PM CDT XR SHOULDER RIGHT 2VW OR MORE*[id number] INDICATION: Pain in right arm. Right shoulder pain. FINDINGS: Two views of the right shoulder without prior for comparison show mild glenohumeral joint space narrowing. There is no acute fracture, subluxation, or dislocation. Procedure Note Karan Underwood MD - 10/28/2021 XR SHOULDER RIGHT 2VW OR MORE*[id number] INDICATION: Pain in right arm. Right shoulder pain. FINDINGS: Two views of the right shoulder without prior for comparison show mild glenohumeral joint space narrowing. There is no acute fracture, subluxation, or dislocation. IMPRESSION MILD DEGENERATIVE CHANGES. Edited by Mehreen Helm on 10/28/2021 3:21 PM *Reading Radiologist: Karan Underwood on 10/28/2021 at 3:25 PM Laura Fontaine NEW VEHICLE SALES CONSULTANT-ASSOCIATE FINANCIAL REPRESENTATIVE DIAGNOSTIC SAIDA GING ORDERABLES * XR ELBOW RIGHT 3VW OR MORE (10/27/2021 2:19 PM CDT) Anatomical Region Laterality Modality Upper Extremity Radiographic Saida ging 10/28/2021 3:13 PM CDT Impressions 10/28/2021 3:22 PM CDT NO ACUTE OSSEOUS ABNORMALITY Edited by Carol Ann on 10/28/2021 3:22 PM *Reading Radiologist: Karan Underwood on 10/28/2021 at 3:22 PM Narrative 10/28/2021 3:22 PM CDT XR ELBOW RIGHT 3VW OR MORE*[id number] INDICATION: Pain in right arm. Right elbow pain after injury. FINDINGS: Three views of the right elbow without prior for comparison shows no evidence of acute displaced fracture, subluxation or dislocation. If symptoms persist, follow-up exam may be of further use to exclude an occult process. Procedure Note Karan Underwood MD - 10/28/2021 XR ELBOW RIGHT 3VW OR MORE*[id number] INDICATION: Pain in right arm. Right elbow pain after injury. FINDINGS: Three views of the right elbow without prior for comparison shows no evidence of acute displaced fracture, subluxation or dislocation. If symptoms persist, follow-up exam may be of further use to exclude an occult process. IMPRESSION NO ACUTE OSSEOUS ABNORMALITY Edited by Carol Ann on 10/28/2021 3:22 PM *Reading Radiologist: Karan Underwood on 10/28/2021 at 3:22 PM Laura Fontaine NEW VEHICLE SALES CONSULTANT-ASSOCIATE FINANCIAL REPRESENTATIVE DIAGNOSTIC SAIDA GING ORDERABLES * PATHOLOGY TISSUE EXAM (STL) (06/27/2021 8:26 AM SOCIAL WORK NURSE) Case Report Surgical Pathology Report Case: [id number] Authorizing Provider: José Luis Looney MD Collected: 06/27/2021 08:26 AM Ordering Location: [facility] Received: 06/27/2021 12:35 PM Pathologist: Nunu Ansari MD Specimen: Polyp Sigmoid 06/30/2021 8:[address] [facility] Final Diagnosis Large intestine, sigmoid polyp, biopsy - Tubular adenoma 06/30/2021 8:[address] [facility] Clinical History The patient is a 56-year-old woman presenting for screening colonoscopy. Operative procedure/findings: single sigmoid polyp, polypectomy. 06/30/2021 8:[address] [facility] Gross Description Received fixed in formalin in one container for gross and microscopic examination, labeled with the patient's name, Rach Vega, and sigmoid polyp is one soft, yellow-slade tissue fragment measuring 0.5 cm in greatest dimension, submitted in toto as cassette A1. GIO/isauro 06/30/2021 8:[address] [facility] Microscopic Description Microscopic examination substantiates the above diagnosis. 06/30/2021 8:[address] [facility] Disclaimer All histochemical and/or immunohistochemical results are interpreted with controls that demonstrate appropriate staining reactions before reporting results. Note on use of immunocytochemistry reagents: This test was developed and its performance characteristic determined by [facility], Department of Laboratory Medicine. It has not been cleared or approved by the U.S. Food and Drug Administration (FDA). The FDA has determined that such clearance or approval is not necessary. The test is used for clinical purpose. It should not be regarded as investigational or for research. This laboratory is certified to perform high complexity testing. The performance characteristics of the IHC/ZAHIRA assays have been validated on formalin-fixed paraffin embedded tissues only. The assays have not been validated on decalcified tissues. Results should be interpreted with caution. 06/30/2021 8:51 AM SOCIAL WORK NURSE [facility] Embedded Images 06/30/2021 8:[address] [facility] Pathology/Cytolo gy POLYP OF SIGMOID COLON / Unknown 06/27/2021 8:26 AM SOCIAL WORK NURSE 06/27/2021 12:35 PM SOCIAL WORK NURSE Comment:Pre-op diagnosis: Screen for colon cancer [Z12.11] José Luis Looney MD LAB - PATHOLOGY/CYTO LOGY ORDERABLES [facility] [address] [place] [address] * ENDOSCOPY, COLON, SCREENING (06/27/2021 7:29 AM SOCIAL WORK NURSE) Report Endoscopy POC _ Patient Name: Rach [...] for surveillance. Procedure Code(s): --- Professional --- 50252, Colonoscopy, flexible; with removal of tumor(s), polyp(s), or other lesion(s) by snare technique --- Technical --- 96524, Colonoscopy, flexible; with removal of tumor(s), polyp(s), or other lesion(s) by snare technique Diagnosis Code(s): --- Professional --- Z80.0, Family history of malignant neoplasm of digestive organs K63.5, Polyp of colon K64.8, Other hemorrhoids --- Technical --- Z80.0, Family history of malignant neoplasm of digestive organs K63.5, Polyp of colon K64.8, Other hemorrhoids CPT copyright 2019 [employer] [place] [employer]. All rights reserved. The codes documented in this report are preliminary and upon breaker mechanic review may be revised to meet current compliance requirements. ___ José Luis Looney MD 06/27/2021 8:29:46 AM This report has been signed electronically. Number of Addenda: 0 Note Initiated On: 06/27/2021 7:29 AM [facility] 06/27/2021 7:29 AM SOCIAL WORK NURSE José Luis Looney MD GI PROCEDURE ORDERAB LES [facility] * ENDOSCOPY ORDER (01/13/2021) Scanned Document GI PROCEDURE ORDERAB LES * MAMMO BILAT SCREENING (10/28/2020) Anatomical Region Laterality Modality Breast Bilateral Mammography José Luis Barrera MD MAMMO ORDERABLES * ECHO LINA (11/21/2018 12:12 PM CDT) Narrative Clyde Sanchez RN - 11/21/2018 12:12 PM CDT Clyde Sanchez, RN 11/21/2018 12:12 PM See Scan Alba Joel MD ECHO ORDERABLES Care Teams Cab Worker Relationship Specialty Start Date End Date José Luis Barrera MD [address] [address] PCP - General Family Medicine 07/25/20
--- OUTSIDE RECORDS SUMMARY | 2024-07-31 13:35 | XMS_ITS | Patient Health Record ---
Author Organization [facility] Address [address] [place] [address] Care Team Providers Care Verification Lead Name Role Phone José Luis Barrera MD Primary Care Provider Unavailab pierce ONEILL MD, DAPHNIE Unavailable REASON FOR REFERRAL Reason EUS for pancreatic c yst surveillance Scheduled for 01/17/24 0930 Diagnosis 1 Cyst of pancreas (K8 6.2) Referral Organization [facility] Referring Provider First Name DAPHNIE Referring Provider Last Name NINO Referring Provider Speciality Gastroente rology Referred Organization [facility] - Op Referred Provider Román Nam Referred Address [address] Sched[address],[place], [id number], Referred Provider Specialty Gastroentero logy Procedure 1 ENDOSCOPIC ULTRASOUN D EXAM (71636) Referral Priority Routine Referral Appointment Date 01/17/2024 MEDICATIONS Medication SIG (Take, Route, Fr equency, Duration) Notes Start Date End Date Status Venlafaxine HCl Acti ve Aspirin 81 MG 1 tablet Orally Once a day Active Myrbetriq Active Sodium Chloride Acti ve Budesonide (Inhalation) Active SOCIAL HISTORY Tobacco Use: Social History Observation Description Date Details (start date - stop date) Never Smoker NA - NA Sex Assigned At : Social History Observation Description Sex Assigned At Unknown Tobacco Use/Smoking Question Answer Notes Are you a nonsmoker PLAN OF TREATMENT No Information Insurance Providers Payer Name Payer Address Payer Phone Subscriber Number Group Number Insured Name Patient Relationship to Insured Coverage Start Date Coverage End Date [facility] [address] [place], [place] [id number] Rach Vega Self - patient is the insured MEDICAL (GENERAL) HISTORY Medical History History ICD Code Depression, PVD, 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 Hyperechoic and hypoechoic foci in entire pancreas. Changes due to cyst. Small cystic lesion in pancreatic body. Appearance s/o branched IPMN . Hyperechoic material in the gallbladder. 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 Repeat EUS 1 yr Path gastric and duo bx neg Loop recorder insertion 2018 , colonoscopy 07/2015 f/u 5 yrs, normal, hemorrhoidectomy 2011, partial hysterectomy 1994
--- OUTSIDE RECORDS SUMMARY | 2024-07-31 13:35 | XMS_ITS | Referral Summary ---
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 Gender Identity Not on file Sexual Orientation [...] 01/12/2022 8:03 AM CDT Plan of Treatment Not on file Medical Devices Implanted Type Area Licensed Esthetician Device Identifier Shelf Expiration Date Model / Serial / Lot Implantable Loop Recorder-11/09/19 19 Implanted:11/08 by Unknown, Notinfile (Quantity not on file) Implantable Loop Recorder Chest [employer] BIOMONITO [id number] / [id number] / Insurance [employer] Advance Directives For more information, please contact: [phone] * Full Code (Latest Code Status on File) Date Activated Date Inactivated Comments 01/17/2024 8:49 AM 01/17/2024 2:52 PM * Full Code Date Activated Date Inactivated Comments 01/12/2022 7:57 AM 01/12/2022 1:46 PM * Full Code Date Activated Date Inactivated Comments 01/15/2020 12:34 PM 01/15/2020 8:59 PM Care Teams Country Singer Relationship Specialty Start Date End Date José Luis Barrera MD [address] [address] PCP - General Family Medicine 01/12/24
--- OUTSIDE RECORDS SUMMARY | 2024-07-31 13:36 | XMS_ITS | Continuity of Care Document ---
Author Organization [facility] Address [address] [place] [address] Phone Care Team Providers Care Nutritionists Name Role Phone Lissa Irene Unavailable Unavailabl e Advance Directives Directive Yes / No Effective Date File Name No Information Encounters Encounter Description Practice Location Reason(s) For Visit Diagnoses Date Provider Providers Copied on Encounter [facility], [address], [place], [place], [id number], tel:[phone] [facility] [place] No Information 2 Mirela Alcaraz. [address], [place], [place], [id number] , . tel:[phone] Referring Provider: José Luis Cook, [address] [place] [address], [address] . tel:[phone] Family History Family Member Type Diagnosis Age At Onset No Information Payers Payer name Insurance type Covered green party ID Authoriza tion(s) No Information Social [...]
== END 2024-07-31 13:03 | disposition home or self-care (01) ==
PROVIDERS: Emergency Provider Nurse Practitioner
DX: J10.1 Influenza due to other identified influenza virus with other respiratory manifestations (principal); Z20.822 Contact with and (suspected) exposure to COVID-19; Z87.891 Personal history of nicotine dependence; I10 Essential (primary) hypertension; M19.90 Unspecified osteoarthritis, unspecified site; I34.9 Nonrheumatic mitral valve disorder, unspecified; F32.A Depression, unspecified; Z86.73 Personal history of transient ischemic attack (TIA), and cerebral infarction without residual deficits; Z79.82 Long term (current) use of aspirin
CPT/HCPCS: 87426; 87804; 99212; G0463

== ENCOUNTER 2025-05-18 14:17 | Outpatient (CLI) | payer BC, SELFPAY ==
--- NOTE | ~2025-05-18 | MM_ITS ---
EXAMINATION: MM screening shreya BI w saeed HISTORY: Screening. TECHNIQUE: Craniocaudal and mediolateral oblique 3-D tomosynthesis images were obtained and synthetic 2-D images were generated. CAD analysis was submitted and interpreted. COMPARISON: 2020 BREAST PARENCHYMAL COMPOSITION: Dense: The breasts are heterogeneously dense FINDINGS: There are waxing and waning circumscribed nodules/masses, consistent with breast cysts. No suspicious masses are seen. There are no suspicious calcifications. No unexplained architectural distortion is seen. There are no skin or nipple abnormalities identified. There is no adenopathy seen on the images submitted. IMPRESSION: No mammographic evidence to suggest malignancy is seen. The patient may return to screening mammography as per ACR guidelines. BI-RADS 2 - Benign. Reviewed, dictated and finalized at location C. BLOCK MAKER
--- NOTE | ~2025-05-18 | DEXA_ITS ---
Bone Density Report Name: AZUCENA PARK Age: 59 Sex: Female Ethnicity: White Date of : 1965 Indication: postmenopausal; screening for osteoporosis; Referring Provider: WES, JULIANNA Study: Bone densitometry was performed. Exam Date: May 18, 2025 Accession number: [id number] Bone Density: Region BMD T-score Z-score Classification AP Spine(L1-L4) 0.818 -2.1 -0.5 Osteopenia Femoral Neck (Left) 0.683 -1.5 -0.1 Osteopenia Total Hip (Left) 0.764 -1.5 -0.4 Osteopenia Femoral Neck (Right) 0.679 -1.5 -0.2 Osteopenia Total Hip (Right) 0.747 -1.6 -0.6 Osteopenia Total Hip Mean 0.756 -1.6 -0.5 Osteopenia World Health Organization criteria for BMD impression classify patients as: Normal (T-score at or above -1.0), Osteopenia (T-score between -1.0 and -2.5), or Osteoporosis (T-score at or below -2.5). 10-year Fracture Risk(1): Major Osteoporotic Fracture 8.2% Hip Fracture 0.8% Reported Risk Factors: [place] (), Neck BMD=0.683, BMI=23.2 (1) FRAX(R) Version 3.08. Fracture probability calculated for an untreated patient. Fracture probability may be lower if the patient has received treatment. Impression: The patient has low bone mass, based on the Total Spine T-score. The patient has an estimated ten-year risk of hip fracture of 0.8% and an estimated ten-year risk of major fracture of 8.2%, based on the WHO FRAX algorithm. Discussion: BONE DENSITY IS LOW AT ONE OR MORE SKELETAL SITES. This patient's lowest T-score is low at one or more skeletal sites. It meets the World Health Organization's (WHO) criteria for ?low bone mass? (T-score between -1.0 and -2.5). The patient's 10-year risk of fracture as calculated by FRAX is less than the threshold where pharmacological therapy is recommended by the National Osteoporosis Foundation (NOF). However, all treatment decisions require clinical judgment and consideration of individual patient factors, including patient preferences, comorbidities, previous drug use, risk factors not captured in the FRAX model (e.g., frailty, falls, vitamin D deficiency, increased bone turnover, interval significant decline in bone density) and possible under or overestimation of fracture risk by FRAX. The patient should follow a healthful lifestyle (good nutrition with adequate calcium and vitamin D, and appropriate weight-bearing exercise). Follow-Up: Consider repeating this study in 2 to 3 years to reassess this patient's status, or sooner if there is some new clinical indication. Reported by: MYAH on 05/18/2025 3:11:00 PM. Reviewed, dictated and finalized at location A.
== END 2025-05-18 14:18 | disposition home or self-care (01) ==
LOC: ANHFOHIMG 14:19
PROVIDERS: Visit Provider Nurse Practitioner Family
DX: Z12.31 Encounter for screening mammogram for malignant neoplasm of breast (principal); Z78.0 Asymptomatic menopausal state; M85.88 Other specified disorders of bone density and structure, other site; M85.852 Other specified disorders of bone density and structure, left thigh; M85.851 Other specified disorders of bone density and structure, right thigh
CPT/HCPCS: 77063; 77067; 77080